=== PATIENT | female | born 1985 | race Caucasian/White ===

== ENCOUNTER 2019-03-03 00:22 | Emergency (ER) | payer BC ==
[2019-03-03 01:15] LABS: Urine Appearance Cloudy; Urine Bacteria 1+ (Absent); Urine Bilirubin Negative (Negative); Urine Blood Negative (Negative); Urine Color Yellow; Urine Glucose Negative (Negative); Urine Ketones Trace (Negative); Urine Nitrite Negative (Negative); Urine Protein Negative (Negative); Urine Red Blood Cell Absent (Absent); Urine Specific Gravity 1.012 (1.010-1.030); Urine Squamous Epithelial Cell Present (Absent); Urine Urobilinogen Negative (Negative); Urine White Blood Cell Trace(0-5/hpf) (Absent)
--- NOTE | 2019-03-03 01:24 | ED ---
Abdominal Pain/Female - HPI Summary HPI Summary: This pt is a 33 Y/O F presenting to [facility] with her and a CC of abdominal pain that has started today. She stated that she was 27 weeks and this was her first . She stated that she was having sharp epigastric and periumbilical abdominal pain that was rated a 9/10 and descried as contractions. She stated that she has had nausea but no vomiting. She stated that she was already seen by GI but the doctor refused to do anything until after her delivery. She stated that she has no aggravating or alleviating symptoms. She has a PMHx of a histial hernia. - History of Current Complaint Chief Complaint: EDAbdPain Stated Complaint: 27 WEEKS PREGS PAIN PER PT Time Seen by Provider: 03/03/19 01:12 Hx Obtained From: Patient Hx Last Menstrual Period: 3 MONTHS AGO ?: Yes - 27 weeks Onset/Duration: Sudden Onset - 213403/02/19, Still Present, Worse Since Timing: Constant Severity Initially: Moderate Severity Currently: Severe Pain Intensity: 9 Pain Scale Used: 0-10 Numeric Location: Epigastric, Umbilical Radiates: No Character: Cramping, Other: - contraction Aggravating Factor(s): Nothing Alleviating Factor(s): Nothing Associated Signs and Symptoms: Positive: Negative - chills, headaches, Nausea. Negative: Fever, Chest Pain, Vaginal Bleeding, Vaginal Discharge, Vomiting Allergies/Adverse Reactions: Allergies Allergy/AdvReac Type Severity Reaction Status Date / Time amoxicillin Allergy Rash Verified 03/03/19 00:30 ciprofloxacin [From Cipro] Allergy Rash Verified 03/03/19 00:30 clavulanic acid Allergy Rash Verified 03/03/19 00:30 [From Augmentin] latex Allergy Hives Verified 03/03/19 00:30 Penicillins Allergy Rash Verified 03/03/19 00:30 phenazopyridine Allergy Rash Verified 03/03/19 00:30 [From Pyridium] Sulfa (Sulfonamide Allergy Rash Verified 03/03/19 00:30 Antibiotics) PMH/Surg Hx/FS Hx/Imm Hx Previously Healthy: Yes Endocrine/Hematology History: Denies: Hx Diabetes, Hx Thyroid Disease Cardiovascular History: Denies: Hx Hypertension, Hx Pacemaker/ICD Respiratory History: Denies: Hx Asthma, Hx Chronic Obstructive Pulmonary Disease (COPD) GI History: Denies: Hx Ulcer History: Reports: Hx Kidney Infection - hx kidney stones Sensory History: Denies: Hx Hearing Aid Psychiatric History: Reports: Hx Anxiety Denies: Hx Panic Disorder - Surgical History Surgery Procedure, Year, and Place: TUBES IN EARS 1986. TONSILLECTOMY 1990 Infectious Disease History: No Infectious Disease History: Denies: Hx Hepatitis, Hx Human Immunodeficiency Virus (HIV), Traveled Outside the [place] in Last 30 Days - Family History Known Family History: Positive: Renal Disease - polycystic kidney disease - Social History Alcohol Use: None Hx Substance Use: No Substance Use Type: Reports: None Hx Tobacco Use: No Smoking Status (MU): Never Smoked Tobacco Review of Systems Negative: Fever, Chills Negative: Chest Pain Positive: Abdominal Pain - umbilical, epigastric. Negative: Vomiting, Nausea Negative: Headache All Other Systems Reviewed And Are Negative: Yes Physical Exam - Summary Physical Exam Summary: VITAL SIGNS: Reviewed. GENERAL: Patient is a well-developed and 28 week female who is lying comfortable in the stretcher. Patient is not in any acute respiratory distress. HEAD AND FACE: No signs of trauma. No ecchymosis, hematomas or skull depressions. No sinus tenderness. EYES: PERRLA, EOMI x 2, No injected conjunctiva, no nystagmus. EARS: Hearing grossly intact. Ear canals and tympanic membranes are within normal limits. MOUTH: Oropharynx within normal limits. NECK: Supple, trachea is midline, no adenopathy, no JVD, no carotid bruit, no c- spine tenderness, neck with full ROM CHEST: Symmetric, no tenderness at palpation LUNGS: Clear to auscultation bilaterally. No wheezing or crackles. CVS: Regular rate and rhythm, S1 and S2 present, no murmurs or gallops appreciated. ABDOMEN: Soft, epigastric and RUQ tenderness. No signs of distention. No rebound no guarding, and no masses palpated. Bowel sounds are normal. EXTREMITIES: FROM in all major joints, no edema, no cyanosis or clubbing. NEURO: Alert and oriented x 3. No acute neurological deficits. Speech is normal and follows commands. SKIN: Dry and warm Triage Information Reviewed: Yes Vital Signs On Initial Exam: Initial Vitals Temp Pulse Resp BP Pulse Ox 97.3 F 93 18 146/87 100 03/03/19 00:24 03/03/19 00:24 03/03/19 00:03/03/19 00:24 03/03/19 00:24 Vital Signs Reviewed: Yes Diagnostics - Vital Signs Vital Signs Temp Pulse Resp BP Pulse Ox 03/03/19 00:24 97.3 F 93 18 146/87 100 - Laboratory Lab Results: Lab Results 03/03/19 Range/Units 00:55 Urine Color Yellow Urine Appearance Cloudy Urine pH 6.0 (5-9) Ur Specific [place] 1.012 (1.010-1.030) Urine Protein Negative (Negative) Urine Ketones Trace A (Negative) Urine Blood Negative (Negative) Urine Nitrate Negative (Negative) Urine Bilirubin Negative (Negative) Urine Urobilinogen Negative (Negative) Ur Leukocyte Esterase 1+ A (Negative) Urine WBC (Auto) Trace(0-5/hpf) (Absent) Urine RBC (Auto) Absent (Absent) Ur Squamous Epith Cells Present A (Absent) Urine Bacteria 1+ A (Absent) Urine Glucose Negative (Negative) Result Diagrams: 03/03/19 01:47 03/03/19 01:47 Lab Statement: Any lab studies that have been ordered have been reviewed, and results considered in the medical decision making process. Abdominal Pain Fem Course/Dx - Course Course Of Treatment: This pt is a 33 Y/O F presenting to [facility] with her and a CC of abdominal pain that has started today. She stated that she was 27 weeks and this was her first . She stated that she was having sharp epigastric and periumbilical abdominal pain that was rated a 9/10 and descried as contractions. Her PE found that she has epigastric and RUQ tenderness. She had abnormal lab values in WBC, RBC, Hct. Her Abnormal urine results are: ketones, leukocyte esterase, squamous epith cells, bacteria. Since US is not avaliable at 0246 the pt will be discharged with a Dx of cholecystits and GERD. She will be instructed to follow up for an ultra sound tomorrow and receive one from gastroenterology. - Diagnoses Provider Diagnoses: Cholecystitis, GERD (gastroesophageal reflux disease) Discharge - Sign-Out/Discharge Documenting (check all that apply): Patient Departure - discharge Patient Received Moderate/Deep Sedation with Procedure: No - Discharge Plan Condition: Stable Disposition: HOME Patient Education Materials: Cholecystitis (ED), Gastroesophageal Reflux Disease (ED) Referrals: Jae Bain MD [Primary Care Provider] - 3 Days Rufina Nieto MD [Medical Doctor] - As Soon As Possible Additional Instructions: Please follow up with Dr. Nieto, Gastroeneterology, for an ultra sound tomorrow. Follow up with your primary care physician in 2-3 days and return to the emergency department for any new or worsening symptoms. - Attestation Statements Document Initiated by Scribe: Yes Documenting Scribe: Osmany Gordon Provider For Whom Scribe is Documenting (Include Credential): Connor Ridley MD Scribe Attestation: IOsmany, scribed for Connor Ridley MD on 03/03/19 at 0238. Status of Scribe Document: Ready
[2019-03-03] MEDS ORDERED: Famotidine IV* 10 MG/ML 2 ML (20 mg) IV SLOW PU ONE (01:27)
[2019-03-03] MEDS ORDERED: Morphine 4 MG/ML VIAL (1 ml) 4 MG/ML VIAL IV ONE (01:27)
[2019-03-03] MEDS ORDERED: Metoclopramide IV* 5 MG/ML 2 ML VIAL IV SLOW PU ONE (01:27)
[2019-03-03 01:53] LABS: ABS Basophils 0.1 10^3/ul (0-0.2); ABS Eosinophils 0.3 10^3/ul (0-0.6); ABS Lymphocytes 2.4 10^3/ul (1.0-4.8); ABS Monocytes 1.1 10^3/ul (0-0.8); ABS Neutrophils 10.6 10^3/ul (1.5-7.7); Eosinophil % 2.2 %; Hematocrit 33 % (35-47); Hemoglobin 11.4 g/dL (12.0-16.0); Lymphocyte % 16.8 %; Mean Corpuscular HGB Conc 34 g/dL (31-36); Mean Corpuscular Hemoglobin 30 pg (27-31); Mean Corpuscular Volume 88 fL (80-97); Mean Platelet Volume 8.9 fL (7.4-10.4); Platelet Count 344 10^3/uL (150-450); Red Blood Count 3.77 10^6 /uL (3.70-4.87); Red Cell Distribution Width 13 % (10-15); White Blood Count 14.5 10^3/uL (3.5-10.8)
[2019-03-03 02:15] LABS: Albumin 3.6 g/dL (3.2-5.2); Albumin/Globulin Ratio 1.3 (1-3); BUN/Creatinine Ratio 16.1 (8-20); EGFR African American 150.9 (>60); EGFR Non-African American 124.7 (>60); Globulin 2.8 g/dL (2-4); Potassium 3.5 mmol/L (3.5-5.0); Total Bilirubin 0.4 mg/dL (0.2-1.0); Total Protein 6.4 g/dL (6.4-8.9)
[2019-03-03 02:45] VITALS: BP 112/51
== END 2019-03-03 03:02 | disposition home or self-care (01) ==
LOC: ED 00:22
DX: O99.613 Diseases of the digestive system complicating pregnancy, third trimester (principal); K21.9 Gastro-esophageal reflux disease without esophagitis; R11.0 Nausea; R10.33 Periumbilical pain; Z3A.27 27 weeks gestation of pregnancy; Z87.442 Personal history of urinary calculi; Z88.0 Allergy status to penicillin; Z88.2 Allergy status to sulfonamides; Z88.8 Allergy status to other drugs, medicaments and biological substances; Z88.1 Allergy status to other antibiotic agents; Z91.040 Latex allergy status
CPT/HCPCS: 36415; 80053; 81003; 81015; 82150; 83690; 85025; 87086; 96374; 96375; 99283; J2270; J2765

== ENCOUNTER 2019-05-12 02:07 | Emergency (ER) | payer BC ==
--- OUTSIDE RECORDS SUMMARY | 2019-05-12 02:16 | XMS REPORT | Continuity of Care Document ---
:1985 External Reference #:[id number] Author Name Humble Queen MD, FACS (transmitted by agent of provider Marlyn Man) Address [address] [place] [address] [place] [address] Care Team Providers Name Role Phone Jae Bain MD - Internal Care Team Information [employer] Medicine Problems Description No Information Available Social History Type Date Description Comments Sex Unknown ETOH Use Denies alcohol use Tobacco Use Start: Unknown End: Patient is a former smoker Unknown Recreational Drug Use Denies Drug Use Smoking Status Reviewed: 03/20/19 Patient is a former smoker Exercise Type/Frequency Exercises regularly Allergies, Adverse Reactions, Alerts Active Allergies Reaction Severity Comments Date Latex 03/12/2019 Penicillin 03/12/2019 Augmentin 03/12/2019 Sulfa Antibiotics 03/12/2019 Peanut-containing Drug Products 03/12/2019 Medications Active Medications SIG Qnty Indications Ordering Provider Date One Daily take one Unknown capsule/tablet Tablets daily by mouth Tums 1 tab by mouth Unknown 500mg Chewtabs four times a day as needed History Medications No Active Medications Unknown 03/12/2019 - 03/20/2019 Immunizations Description No Information Available Vital Signs Date Vital Result Comment 03/20/2019 2:26pm Height 60 inches 5'0" Weight 158.00 lb Heart Rate 80 /min BP Systolic 128 mmHg BP Diastolic 76 mmHg Respiratory Rate 16 /min Body Temperature 98.7 F BMI (Body Mass Index) 30.9 kg/m2 Results Description No Information Available Procedures Description No Information Available Medical Devices Description No Information Available Encounters Description No Information Available Assessments Date Code Description Provider 03/20/2019 K80.20 Calculus of gallbladder without Humble Queen MD, FACS cholecystitis without obstruction Plan of Treatment Future Appointment(s):08/03/2019 9:00 am - Humble Queen MD, FACS at [facility]03/20/2019 - Humble Queen MD, FACSK80.20 Calculus of gallbladder without cholecystitis without obstructionFollow up:2-3 months post- . Functional Status Description No Information Available Mental Status Description No Information Available Referrals Description No Information Available
--- OUTSIDE RECORDS SUMMARY | 2019-05-12 02:16 | XMS REPORT | Continuity of Care Document ---
:1985 External Reference #:[id number] Author Name Jae Bain MD Address [address] [place] [id number] Care Team Providers Name Role Phone Shanti Wharton MD - Obstetrics & Care Team Information [employer] [place] [facility]ne[facility] Problems Active Problems Provider Date Allergic rhinitis Jae Bain MD Onset: 11/16/2016 Moderate recurrent major depression Jae Bain MD Onset: 06/04/2016 Tobacco user Jae Bain MD Onset: 06/04/2016 H/O: urinary stone Jae Bain MD Onset: 06/07/2015 Generalized anxiety disorder Jae Bain MD Onset: 02/10/2014 Non-neoplastic nevus Jae Bain MD Onset: 02/10/2014 Social History Type Date Description Comments Sex Unknown ETOH Use Rarely consumes alcohol Tobacco Use Start: Unknown Light tobacco smoker Quit smoking with (10 or fewer as of cigarettes/day) Early 2018. Recreational Drug Use Never Used Drugs Tobacco Use Start: Unknown End: Patient is a former Unknown smoker Smoking Status Reviewed: 01/21/19 Patient is a former smoker Exercise Type/Frequency Does not exercise Allergies, Adverse Reactions, Alerts Active Allergies Reaction Severity Comments Date Latex Contact dermatitis, Moderate 02/10/2014 Urticaria Penicillin Urticaria Moderate 02/10/2014 Augmentin Urticaria Moderate 02/10/2014 Sulfa Urticaria Moderate 02/10/2014 Peanut-containing Drug Moderate 02/10/2014 Products Medications Description No Active Medications Immunizations CPT Code Status Date Vaccine Lot # [id number] Given 05/05/2014 Influenza Virus Split 3 Yrs And Above For Intramuscular Use 52730 Given 05/05/2013 Influenza Virus Split 3 Yrs And Above For Intramuscular Use [id number] Given 03/05/2006 Tdap-Tetanus, Diphtheria Toxoids/Acellular Pertussis Vaccine 7+ [id number] Refused 07/15/2018 Tdap-Tetanus, Diphtheria Toxoids/Acellular Pertussis Vaccine 7+ [id number] Refused 07/15/2018 Influenza Vaccine Quadrivalent Preser/Antibiotic Free [place] Use [id number] Refused 05/31/2015 Influenza Virus Split 3 Yrs And Above For Intramuscular Use Vital Signs Date Vital Result Comment 04/21/2019 12:49pm Body Temperature 98.2 F Heart Rate 80 /min BP Systolic 115 mmHg BP Diastolic 80 mmHg 03/11/2019 12:07pm Heart Rate 72 /min BP Systolic 110 mmHg BP Diastolic 70 mmHg Weight 162.00 lb Results Test Date Facility Test Result H/L Range Note CBC Auto Diff 03/03/2019 [facility] White Blood 14.5 10^3/uL High 3.5-10.8 [place] [address] Count [phone] Red Blood Count 3.77 10^6/uL Normal 3.70-4.87 Hemoglobin 11.4 g/dL Low 12.0-16.0 Hematocrit 33 % Low 35-47 Mean Corpuscular Volume 88 fL Normal 80-97 Mean Corpuscular Hemoglobin 30 pg Normal 27-31 Mean Corpuscular HGB Conc 34 g/dL Normal 31-36 Red Cell Distribution Width 13 % Normal 10-15 Platelet Count 344 10^3/uL Normal 150-450 Mean Platelet Volume 8.9 fL Normal 7.4-10.4 Abs Neutrophils 10.6 10^3/uL High 1.5-7.7 Abs Lymphocytes 2.4 10^3/uL Normal 1.0-4.8 Abs Monocytes 1.1 10^3/uL High 0-0.8 Abs Eosinophils 0.3 10^3/uL Normal 0-0.6 Abs Basophils 0.1 10^3/uL Normal 0-0.2 Abs Nucleated RBC 0.0 10^3/uL Granulocyte % 73.2 % Lymphocyte % 16.8 % Monocyte % 7.3 % Eosinophil % 2.2 % Basophil % 0.5 % Nucleated Red Blood Cells % 0.0 Comp Metabolic 03/03/2019 [facility] Sodium 136 mmol/L Normal 135-145 [place] [address] [phone] Potassium 3.5 mmol/L Normal 3.5-5.0 Chloride 103 mmol/L Normal 101-111 Co2 Carbon Dioxide 24 mmol/L Normal 22-32 Anion Gap 9 mmol/L Normal 2-11 Glucose 115 mg/dL High 70-100 Blood Urea Nitrogen 9 mg/dL Normal 6-24 Creatinine 0.56 mg/dL Normal 0.51-0.95 BUN/Creatinine Ratio 16.1 Normal 8-20 Calcium 10.0 mg/dL Normal 8.6-10.3 Total Protein 6.4 g/dL Normal 6.4-8.9 Albumin 3.6 g/dL Normal 3.2-5.2 Globulin 2.8 g/dL Normal 2-4 Albumin/Globulin Ratio 1.3 Normal 1-3 Total Bilirubin 0.40 mg/dL Normal 0.2-1.0 Alkaline Phosphatase 110 U/L High 34-104 Alt 42 U/L Normal 7-52 Ast 32 U/L Normal 13-39 Egfr Non- 124.7 >60 Egfr 150.9 >60 1 Laboratory test 03/03/2019 [facility] Amylase 41 U/L Normal 29 -103 [place] [address] [phone] Lipase 15 U/L Normal 11.0-82.0 Urinalysis Profile 03/03/2019 [facility] [place] [address] [phone] Urine Appearance Cloudy Urine Specific [place] 1.012 Normal 1.010-1.030 Urine pH 6.0 Normal 5-9 Urine Urobilinogen Negative Negative Urine Ketones Trace Abnormal Negative Urine Protein Negative Negative Urine Leukocytes 1+ Abnormal Negative Urine Blood Negative Negative Urine Nitrite Negative Negative Urine Bilirubin Negative Negative Urine Glucose Negative Negative Urine White Blood Cell Trace(0-5/hpf) Absent Urine Red Blood Cell Absent Absent Urine Bacteria 1+ Abnormal Absent Urine Squamous Epithelial Cell Present Abnormal Absent Urine Culture And 03/03/2019 [facility] Urine Culture SEE RESULT 2 [place] [address] BELOW [phone] 1 Because ethnic data is not always readily available, this report includes an eGFR for both -Americans and non- Americans. The National Kidney Disease Education Program (NKDEP) does not endorse the use of the MDRD equation for patients that are not between the ages of 18 and 70, are , have extremes of body size, muscle mass, or nutritional status, or are non- or non-. According to the National Kidney Foundation, irrespective of diagnosis, the stage of the disease is based on the level of kidney function: Stage Description GFR(mL/min/1.73 m(2)) 1 Kidney damage with normal or decreased GFR 90 2 Kidney damage with mild decrease in GFR 60-89 3 Moderate decrease in GFR 30-59 4 Severe decrease in GFR 15-29 5 Kidney failure <15 (or dialysis) 2 SEE RESULT BELOW Name: KANIKA REIS : [address]: Connor Ridley MD Acct: [id number] Unit: [id number] AGE: 33 Location: ED Re03/03/19 SEX: F Status: RICHAR CHICAS SPEC: [id number] EMORY: 03/03/190055 ASHWIN DR: Rico DIEZ REQ: [id number] RECD: 03/03/19 STATUS: CAL NEWBERRY DR: [facility] Jae Bain MD _ SOURCE: URINE SPDESC: ORDERED: Urine Culture Procedure Result Reported Site Urine Culture Final 03/04/19- 36 ML No growth of clinically significant organisms * ML - Main Lab . END OF REPORT DEPARTMENT OF PATHOLOGY, [address] [place] [address] Jonas Auguste M.D. Director [facility] # [id number] Procedures Description No Information Available Medical Devices Description No Information Available Encounters Type Date Location Provider Dx Diagnosis Office Visit 04/21/2019 Main Office Jae Bain, B34.9 Viral infection, 12:20p unspecified R05 Cough Office Visit 03/11/2019 12:00p Main Office Jae Keyes K80.20 Calculus of MD Taya gallbladder w/o cholecystitis w/o obstruction K21.9 Gastro-esophageal reflux disease without esophagitis Office Visit 01/21/2019 11:20a Main Office Jae Keyes K21.9 Gastro- esophageal MD Taya reflux disease without esophagitis F33.1 Major depressive disorder, recurrent, moderate F41.1 Generalized anxiety disorder F17.210 Nicotine dependence, cigarettes, uncomplicated Office Visit 12/31/2018 3:20p Main Office Jae Keyes R10.10 Upper abdominal MD Taya pain, unspecified Office Visit 11/13/2018 10:20a Main Office Jae Keyes I10 Essential ( primary) MD Taya hypertension F33.1 Major depressive disorder, recurrent, moderate F41.1 Generalized anxiety disorder Assessments Date Code Description Provider 04/21/2019 B34.9 Viral infection, unspecified Jae Bain MD 04/21/2019 R05 Cough Jae Bain MD 03/11/2019 K80.20 Calculus of gallbladder without Jae Bain MD cholecystitis without obstruction 03/11/2019 K21.9 Gastro-esophageal reflux disease without Jae Bain MD esophagitis 01/21/2019 K21.9 Gastro-esophageal reflux disease without Jae Bain MD esophagitis 01/21/2019 F33.1 Major depressive disorder, recurrent, aJe Bain MD moderate 01/21/2019 F41.1 Generalized anxiety disorder Jae Bain MD 01/21/2019 F17.210 Nicotine dependence, cigarettes, Jae Bain MD uncomplicated 12/31/2018 R10.10 Upper abdominal pain, unspecified Jae Bain MD 11/13/2018 I10 Essential (primary) hypertension Jae Bain MD 11/13/2018 F33.1 Major depressive disorder, recurrent, Jae Bain MD moderate 11/13/2018 F41.1 Generalized anxiety disorder Jae Bain MD Plan of Treatment Future Appointment(s):07/16/2019 10:00 am - Jae Bain MD at Main [facility]404/21/2019 - Jae Bain MDB34.9 Viral infection, unspecifiedComments:Resolving.Benign examination.R05 CoughComments:Possible residual viral infection and post nasal drip related and due to GERD.Lifestyle and dietary modifications advised. Functional Status Description No Information Available Mental Status Description No Information Available Referrals Refer to Dr Reason for Referral Status Appt Date Humble Queen MD Closed 03/20/[address] [place] [address] [place] [address] [phone]
[2019-05-12 03:20] LABS: ABS Eosinophils 0.1 10^3/ul (0-0.6); ABS Lymphocytes 2.7 10^3/ul (1.0-4.8); ABS Monocytes 0.9 10^3/ul (0-0.8); ABS Neutrophils 6.5 10^3/ul (1.5-7.7); Eosinophil % 1.2 %; Hematocrit 33 % (35-47); Hemoglobin 11.2 g/dL (12.0-16.0); Lymphocyte % 26.5 %; Mean Corpuscular HGB Conc 34 g/dL (31-36); Mean Corpuscular Hemoglobin 29 pg (27-31); Mean Corpuscular Volume 85 fL (80-97); Mean Platelet Volume 10.1 fL (7.4-10.4); Platelet Count 239 10^3/uL (150-450); Red Blood Count 3.89 10^6 /uL (3.70-4.87); Red Cell Distribution Width 14 % (10-15); White Blood Count 10.3 10^3/uL (3.5-10.8)
[2019-05-12 03:38] LABS: Albumin 3.2 g/dL (3.2-5.2); Albumin/Globulin Ratio 1.2 (1-3); BUN/Creatinine Ratio 17.5 (8-20); Calcium 8.9 mg/dL (8.6-10.3); EGFR African American 131.7 (>60); EGFR Non-African American 108.8 (>60); Globulin 2.6 g/dL (2-4); Potassium 3.6 mmol/L (3.5-5.0); Total Bilirubin 0.3 mg/dL (0.2-1.0); Total Protein 5.8 g/dL (6.4-8.9)
--- NOTE | 2019-05-12 03:38 | ED ---
Abdominal Pain/Female - HPI Summary HPI Summary: Pt is a 33 y/o F presenting to the ED with a chief complaint of abd pain initially onset about 0030 tonight. She is 37.5wks , due on the 30 of May, and states that she has had trouble with a hiatal hernia and gallstones while she has been . She reports nausea and diarrhea. She denies fever, vomiting, dysuria, hematuria, vaginal bleeding or discharge. Dr. Bonilla is her CAREER DEVELOPMENT SPECIALIST. - History of Current Complaint Chief Complaint: EDAbdPain Stated Complaint: 9 MONTHS PREG/ABD PAIN PER PT Time Seen by Provider: 05/12/19 02:37 Hx Obtained From: Patient ?: Yes - 37.5wks Onset/Duration: Sudden Onset, Lasting Hours, Still Present Timing: Hours Severity Initially: Moderate Severity Currently: Severe Pain Intensity: 9 Pain Scale Used: 0-10 Numeric Location: Suprapubic Radiates: No Aggravating Factor(s): Nothing Alleviating Factor(s): Nothing Associated Signs and Symptoms: Positive: Nausea, Diarrhea. Negative: Fever, Urinary Symptoms, Vaginal Bleeding, Vaginal Discharge, Vomiting Allergies/Adverse Reactions: Allergies Allergy/AdvReac Type Severity Reaction Status Date / Time amoxicillin Allergy Rash Verified 05/12/19 02:31 ciprofloxacin [From Cipro] Allergy Rash Verified 05/12/19 02:31 clavulanic acid Allergy Rash Verified 05/12/19 02:31 [From Augmentin] latex Allergy Hives Verified 05/12/19 02:31 Penicillins Allergy Rash Verified 05/12/19 02:31 phenazopyridine Allergy Rash Verified 05/12/19 02:31 [From Pyridium] Sulfa (Sulfonamide Allergy Rash Verified 05/12/19 02:31 Antibiotics) PMH/Surg Hx/FS Hx/Imm Hx Previously Healthy: Yes Endocrine/Hematology History: Denies: Hx Diabetes, Hx Thyroid Disease Cardiovascular History: Denies: Hx Hypertension, Hx Pacemaker/ICD Respiratory History: Denies: Hx Asthma, Hx Chronic Obstructive Pulmonary Disease (COPD) GI History: Reports: Hx Gall Bladder Disease - gallstones, Hx Hiatal Hernia Denies: Hx Ulcer History: Reports: Hx Kidney Infection - hx kidney stones Sensory History: Denies: Hx Hearing Aid Psychiatric History: Reports: Hx Anxiety Denies: Hx Panic Disorder - Surgical History Surgery Procedure, Year, and Place: TUBES IN EARS 1986. TONSILLECTOMY 1990 Infectious Disease History: No Infectious Disease History: Denies: Hx Hepatitis, Hx Human Immunodeficiency Virus (HIV), Traveled Outside the [place] in Last 30 Days - Family History Known Family History: Positive: Renal Disease - polycystic kidney disease - Social History Alcohol Use: None Hx Substance Use: No Substance Use Type: Reports: None Hx Tobacco Use: No Smoking Status (MU): Former Smoker Review of Systems Negative: Fever Positive: Abdominal Pain, Diarrhea, Nausea. Negative: Vomiting Negative: dysuria, discharge - vaginal, hematuria, other - vaginal bleeding All Other Systems Reviewed And Are Negative: Yes Physical Exam - Summary Physical Exam Summary: Constitutional: Well-developed, Well-nourished, Alert. (-) Distressed Skin: Warm, Dry HENT: Normocephalic; Atraumatic Eyes: Conjunctiva normal Neck: Musculoskeletal ROM normal neck. (-) JVD, (-) Stridor, (-) Tracheal deviation Cardio: Rhythm regular, rate normal, Heart sounds normal; Intact distal pulses; Radial pulses are 2+ and symmetric. (-) Murmur Pulmonary/Chest wall: Effort normal. (-) Respiratory distress, (-) Wheezes, (-) Rales Abd: Gravid uterus. Mild epigastric tenderness. (-) Distension, (-) Guarding, (- ) Rebound Musculoskeletal: (-) Edema Lymph: (-) Cervical adenopathy Neuro: Alert, Oriented x3 Psych: Mood and affect Normal Triage Information Reviewed: Yes Vital Signs On Initial Exam: Initial Vitals Temp Pulse Resp BP Pulse Ox 97.8 F 72 18 117/73 98 05/12/19 02:10 05/12/19 02:10 05/12/19 02:10 05/12/19 02:10 05/12/19 02:10 Vital Signs Reviewed: Yes Procedures - Sedation Patient Received Moderate/Deep Sedation with Procedure: No Diagnostics - Vital Signs Vital Signs Temp Pulse Resp BP Pulse Ox 05/12/19 02:10 97.8 F 72 18 117/73 98 - Laboratory Lab Results: Lab Results 05/12/19 Range/Units 03:12 WBC 10.3 (3.5-10.8) 10^3/uL RBC 3.89 (3.70-4.87) 10^6 /uL Hgb 11.2 L (12.0-16.0) g/dL Hct 33 L (35-47) % MCV 85 (80-97) fL MCH 29 (27-31) pg MCHC 34 (31-36) g/dL RDW 14 (10-15) % Plt Count 239 (150-450) 10^3/uL MPV 10.1 (7.4-10.4) fL Neut % (Auto) 63.3 % Lymph % (Auto) 26.5 % [place] % (Auto) 8.5 % Eos % (Auto) 1.2 % Baso % (Auto) 0.5 % Absolute Neuts (auto) 6.5 (1.5-7.7) 10^3/ul Absolute Lymphs (auto) 2.7 (1.0-4.8) 10^3/ul Absolute Monos (auto) 0.9 H (0-0.8) 10^3/ul Absolute Eos (auto) 0.1 (0-0.6) 10^3/ul Absolute Basos (auto) 0.0 (0-0.2) 10^3/ul Absolute Nucleated RBC 0.0 10^3/ul Nucleated RBC % 0.0 Result Diagrams: 05/12/19 03:12 05/12/19 03:12 Lab Statement: Any lab studies that have been ordered have been reviewed, and results considered in the medical decision making process. Re-Evaluation - Re-Evaluation 1st re-eval Re-Evaluation Time: 03:54 Change: Improved Comment: Pt states she is feeling better and would like to go home. Abdominal Pain Fem Course/Dx - Course Course Of Treatment: Patient is here with epigastric abdominal pain. Patient has had similar episodes like this throughout her and that. She has gallstones and a hiatal hernia. Patient's pain was passing improved by the time I evaluated her. Patient was offered pain medication but she declined. Patient had a CBC, CMP, lipase performed which showed slight elevation compared to her prior testing her LFTs and alkaline phosphatase. Patient clinically did not have cholecystitis as she was asymptomatic by the time she was discharged - Diagnoses Provider Diagnoses: Gallstones Discharge ED - Sign-Out/Discharge Documenting (check all that apply): Patient Departure - Discharge Plan Condition: Stable Disposition: HOME Patient Education Materials: Gallstones (ED) Referrals: Jae Bain MD [Primary Care Provider] - José Luis Bonilla MD [Medical Doctor] - Additional Instructions: Follow up with Dr. Bonilla within the next 1-3 days. Return to the emergency department with any new or worsening symptoms, including worsening abdominal pain or fever. - Billing Disposition and Condition Condition: STABLE Disposition: Home - Attestation Statements Document Initiated by Scribe: Yes Documenting Scribe: Aleisha Cerna Provider For Whom Jasmina is Documenting (Include Credential): Jerald Noriega MD. Scribe Attestation: Aleisha Starr, scribed for Jerald Noriega MD. on 05/12/19 at 0500. Scribe Documentation Reviewed: Yes Provider Attestation: The documentation as recorded by the christineibAleisha villegas accurately reflects the service I personally performed and the decisions made by Jerald vizcarra MD. Status of Scribe Document: Viewed
[2019-05-12 04:11] VITALS: BP 132/66
== END 2019-05-12 04:11 | disposition home or self-care (01) ==
LOC: ED 02:07
DX: O26.893 Other specified pregnancy related conditions, third trimester (principal); K80.80 Other cholelithiasis without obstruction; Z3A.37 37 weeks gestation of pregnancy; Z87.891 Personal history of nicotine dependence; Z88.0 Allergy status to penicillin; Z88.2 Allergy status to sulfonamides; Z88.8 Allergy status to other drugs, medicaments and biological substances; Z88.1 Allergy status to other antibiotic agents; Z91.040 Latex allergy status
CPT/HCPCS: 36415; 80053; 83690; 85025; 99282

== ENCOUNTER 2019-05-28 12:03 | Inpatient (IN) | payer BC ==
[2019-05-28] MEDS ORDERED: Lactated Ringers 1000 ML Bag* 1,000 ML IV ONE ×2 (13:42→21:19)
[2019-05-28] MEDS ORDERED: Buffered Lidocaine 1% SYRIN* 1 ML/SYRINGE INTRADERM ONE (13:42)
--- NOTE | 2019-05-28 13:52 | HP ---
General Information - Reason for Visit Induction of labor for a full term effected by gallstones and hiatal hernia. - General Information Maternal Age: 33 Grav: 1 Para: 0 SAB: 0 IEA: 0 Estimated Due Date: 05/31/19 Determined By: LMP Gestational Age in Weeks/Days: 39w4d Maternal Blood Type and Rh: O Negative - Results this Serology/RPR Result: Non-Reactive Rubella Result: Immune HBsAg Result: Negative HIV Result: Negative GBS Culture Result: Negative Past Medical History Pertinent Past Medical History: See Records - anxiety, PTSD, hiatal hernia, gallstones, history of hypertension Pertinent Past Surgical History: See Records - 1994 tonsillectomy, 1985:tubes in ears Pertinent Family History: See Records - sister: PCOS, anxiety; PGM: CVD, HTN, DM; M: HTN, stroke, DM, kidney stones; F: HTN, DM, thyroid, prostate CA, high chol, CVD; MGM: CVD, thyroid, blood clots; MGF: DM, CVD, liver CA - Antepartal Records Antepartal Records: Reviewed, Complicated by: - gallstones, hiatal hernia, PTSD, history of hypertension Review of Systems Constitutional: Comfortable CV Complaint: No Respiratory: Shortness of Breath: No Gastrointestinal: No Nausea/Vomiting, Normal Bowel Movement Genitourinary: No Dysuria, No Bleeding, No Leaking Fluid Musculoskeletal: No Complaint, No Epigastric Pain Neurological: No Headache, No Visual Changes Movement: Normal Exam Allergies/Adverse Reactions: Allergies amoxicillin Allergy (Verified 05/12/19 02:31) Rash ciprofloxacin [From Cipro] Allergy (Verified 05/12/19 02:31) Rash clavulanic acid [From Augmentin] Allergy (Verified 05/12/19 02:31) Rash latex Allergy (Verified 05/12/19 02:31) Hives Penicillins Allergy (Verified 05/12/19 02:31) Rash phenazopyridine [From Pyridium] Allergy (Verified 05/12/19 02:31) Rash Sulfa (Sulfonamide Antibiotics) Allergy (Verified 05/12/19 02:31) Rash Vital Signs 05/28/19 12:10 Temperature 98.4 F Pulse Rate 93 Respiratory 22 Rate Blood Pressure 130/82 (mmHg) O2 Sat by Pulse 100 Oximetry Lab Values - Entire Visit: pending - Measurements Height: 5 ft Weight: 160 lb Weight in lbs: [id number] Body Mass Index (BMI): 31.2 Pre- Weight: 160 lb Weight Gained This : 0 lbs and 0 ozs - Exam Breast: Breast Exam Deferred CVA: No CVA Tenderness Extremities: No Edema Heart: Normal Rhythm/Heart Sounds HEENT: No Significant Findings Lungs: Clear Bilaterally Rectal: Rectal Exam Deferred Reflexes: DTR 2+ Thyroid: No Thyromegaly - Abdominal Exam Abdomen Exam: Fundal Height Consistent with Dates - Ultrasound/Biophysical Profile Ultrasound Status: Not Done Targeted Exam Findings Estimated Weight: 7lbs 3oz Cervical Exam: 3cm, 4cm Effacement: 60%, 70% Station: Ballotable Presenting Part: Vertex Membrane Status: Intact Bleeding/Discharge: None EFM Findings - External Monitor Findings Baseline Heart Rate: 130 External Monitor Findings: Accelerations Present, No Pattern of Variable or Late Decelerations, Variability Moderate, Baseline Stable Contractions: Irregular, Mild, < 45 Seconds Assessment/Plan - Assessment 33 y.o. , [id number], induction of labor for effected by hiatal hernia and gallstones - Obstetrical Risk Factors Obstetrical Risk Factors: Psychiatric Issues - Plan Plan: Induction - Date/Time of Admission Date of Admission: 05/28/19 Time of Admission: 13:30
[2019-05-28] MEDS ORDERED: Lactated Ringers 1000 ML Bag* 1,000 ML IV SCH ×2 (14:00→22:00)
[2019-05-28] MEDS ORDERED: Oxytocin in LR* 20 UNITS/1,000 ML BAG IVPB SCH (14:00)
[2019-05-28 14:49] LABS: ABS Basophils 0.1 10^3/ul (0-0.2); ABS Eosinophils 0.1 10^3/ul (0-0.6); ABS Lymphocytes 3.1 10^3/ul (1.0-4.8); ABS Neutrophils 8.2 10^3/ul (1.5-7.7); Eosinophil % 0.8 %; Hematocrit 39 % (35-47); Hemoglobin 12.8 g/dL (12.0-16.0); Lymphocyte % 24.7 %; Mean Corpuscular HGB Conc 33 g/dL (31-36); Mean Corpuscular Hemoglobin 28 pg (27-31); Mean Corpuscular Volume 86 fL (80-97); Mean Platelet Volume 10.8 fL (7.4-10.4); Platelet Count 270 10^3/uL (150-450); Red Blood Count 4.52 10^6 /uL (3.70-4.87); Red Cell Distribution Width 15 % (10-15); White Blood Count 12.5 10^3/uL (3.5-10.8)
[2019-05-28 15:12] LABS: Urine Benzodiazepine Screen None Detected (None Detect); Urine Opiates Screen None Detected (None Detect)
--- NOTE | 2019-05-28 20:44 | PN ---
Progress Note - Progress Note Date of Service: 05/28/19 SOAP: Subjective: Pt reports contractions are stronger and closer together but she is still coping well, plan is epidural soon. Objective: FHR:125bpm, + accels, - decels, moderate variability, ctx q 2-3cm, pt at 12. cervix:4-5/70/-1 Assessment: 33 y.o. 39w4d EGA, cat I NST, IOL Plan: 1) AROM- clear 2) Anesthesia consult 3) Reevaluate in 2 hrs
[2019-05-28] MEDS ORDERED: Bupivacaine 0.25% SDV PF* 10 ML VIAL INJ ONE (20:50)
[2019-05-28] MEDS ORDERED: OBEPIDURAL* 250 ML EPIDURAL ONE (20:52)
[2019-05-28] MEDS ORDERED: Phenylephrine 40 MCG/ML SYRINGE IV PUSH PRN (21:19)
[2019-05-28] MEDS ORDERED: Sodium Citrate/Citric Acid* 15 ML UDC PO PRN (21:19)
[2019-05-28] MEDS ORDERED: Famotidine TAB* 20 MG PO PRN (21:19)
[2019-05-28] MEDS ORDERED: EPHEDrine (Pressors)* 50 MG/ML VIAL IV PUSH PRN (21:19)
[2019-05-28] MEDS ORDERED: OBEPIDURAL* 250 ML EPIDURAL SCH (22:00)
[2019-05-29] MEDS ORDERED: Glycerin ADULT SUPP PR PRN (03:16)
--- NOTE | 2019-05-29 03:16 | PROCNOTE ---
[facility] OB: Delivery Note - Delivery A Date of : 05/29/19 Time of : 02:54 Sex: Male Score 1 Minute: 9 Score 5 Minutes: 10 Gestational Age in Weeks and Days at Delivery: 39 Weeks and 5 Days Delivery Method: Spontaneous Vaginal Labor: Induced Amniotic Fluid: Clear Estimated Blood Loss: 200 Anesthesia/Analgesia: CEI for Labor Delivered By: Lydia Gibson - Nursery Level of Nursery: Regular/Bedside - Perineum Perineal Injury: Perineal Laceration, 1st Degree Perineal Repair: By Delivering Practioner - Events Delivery Events of Note: Pitocin During Labor
[2019-05-29] MEDS ORDERED: Oxytocin in LR* 20 UNITS/1,000 ML BAG IVPB SCH (04:00)
[2019-05-29] MEDS ORDERED: Lactated Ringers 1000 ML Bag* 1,000 ML IV SCH (04:00)
[2019-05-29] MEDS: Dibucaine 1% 28.35 GM TUBE PR PRN (04:07)
[2019-05-29] MEDS: Ibuprofen TAB* 600 MG PO PRN ×3 (04:07→20:28)
[2019-05-29] MEDS: Witch Hazel PAD* JAR TOPICAL PRN (04:07)
[2019-05-29] MEDS ORDERED: Ammonia Inhalant* 1 EA AMP ONE (05:33)
[2019-05-29] MEDS ORDERED: Lidocaine 1% INJ* 10 MG/ML 30 ML SDV ONE (06:07)
[2019-05-29] MEDS: Docusate CAP* 100 MG PO SCH ×3 (07:16→20:28)
[2019-05-29] MEDS: Acetaminophen TAB* 325 MG PO PRN ×3 (07:16→18:16)
[2019-05-29] MEDS ORDERED: Simethicone TAB* 80 MG TAB.CHEW PO SCH (08:30)
[2019-05-29] MEDS ORDERED: Influenza VAC *QUAD* 2019-20* 0.5 ML SYRINGE IM ONE (09:00)
[2019-05-30] MEDS: Ibuprofen TAB* 600 MG PO PRN ×4 (02:21→21:16)
[2019-05-30] MEDS: Witch Hazel PAD* JAR TOPICAL PRN ×2 (05:49→22:51)
[2019-05-30] MEDS: Dibucaine 1% 28.35 GM TUBE PR PRN ×2 (05:49→22:51)
[2019-05-30] MEDS: Docusate CAP* 100 MG PO SCH ×3 (08:45→20:41)
[2019-05-30 08:57] LABS: ABS Basophils 0.1 10^3/ul (0-0.2); ABS Eosinophils 0.1 10^3/ul (0-0.6); ABS Lymphocytes 2.6 10^3/ul (1.0-4.8); ABS Monocytes 0.9 10^3/ul (0-0.8); ABS Neutrophils 10.9 10^3/ul (1.5-7.7); Hematocrit 31 % (35-47); Hemoglobin 10.2 g/dL (12.0-16.0); Lymphocyte % 17.8 %; Mean Corpuscular HGB Conc 33 g/dL (31-36); Mean Corpuscular Hemoglobin 28 pg (27-31); Mean Corpuscular Volume 86 fL (80-97); Platelet Count 218 10^3/uL (150-450); Red Blood Count 3.63 10^6 /uL (3.70-4.87); Red Cell Distribution Width 16 % (10-15); White Blood Count 14.6 10^3/uL (3.5-10.8)
[2019-05-30] MEDS ORDERED: Ferrous Gluconate TAB* 324 MG TAB PO SCH (09:00)
[2019-05-30] MEDS ORDERED: RHO D Immune Globulin (HUMAN)* 300 MCG = 1,500 I.U. INJ IM ONE (11:28)
[2019-05-30] MEDS: Acetaminophen TAB* 325 MG PO PRN (20:41)
[2019-05-31] MEDS: Acetaminophen TAB* 325 MG PO PRN (00:41)
[2019-05-31] MEDS: Ibuprofen TAB* 600 MG PO PRN ×2 (03:37→10:01)
[2019-05-31 07:55] VITALS: BP 127/70
[2019-05-31] MEDS: Docusate CAP* 100 MG PO SCH (10:01)
[2019-05-31] MEDS: Dibucaine 1% 28.35 GM TUBE PR PRN (10:05)
[2019-05-31] MEDS: Witch Hazel PAD* JAR TOPICAL PRN (10:05)
== END 2019-05-31 11:50 | disposition home or self-care (01) | DRG 560 ==
LOC: MCHOBOUT 12:03 → MCHOB 13:43
PROVIDERS: ADMIT Midwife; ATTEND Midwife
PROC: 10E0XZZ Delivery of Products of Conception, External Approach (ICD-10-PCS; principal; 2019-05-29)
PROC: 3E033VJ Introduction of Other Hormone into Peripheral Vein, Percutaneous Approach (ICD-10-PCS; 2019-05-29)
PROC: 10907ZC Drainage of Amniotic Fluid, Therapeutic from Products of Conception, Via Natural or Artificial Opening (ICD-10-PCS; 2019-05-29)
PROC: 0HQ9XZZ Repair Perineum Skin, External Approach (ICD-10-PCS; 2019-05-29)
DX: O99.62 Diseases of the digestive system complicating childbirth (principal); Z37.0 Single live birth; K80.80 Other cholelithiasis without obstruction; O99.344 Other mental disorders complicating childbirth; F43.10 Post-traumatic stress disorder, unspecified; O70.0 First degree perineal laceration during delivery; O75.89 Other specified complications of labor and delivery; K44.9 Diaphragmatic hernia without obstruction or gangrene; Z3A.39 39 weeks gestation of pregnancy
CPT/HCPCS: 36415; 80307; 85025; 85461; 86850; 86870; 86880; 86900; 86901; 90686; A9270-GY; J2790; J3490

== ENCOUNTER 2019-06-09 12:17 | Inpatient (IN) | payer BC ==
[2019-06-09 12:48] LABS: ABS Basophils 0.1 10^3/ul (0-0.2); ABS Eosinophils 0.2 10^3/ul (0-0.6); ABS Monocytes 0.5 10^3/ul (0-0.8); Eosinophil % 1.8 %; Hematocrit 39 % (35-47); Hemoglobin 12.6 g/dL (12.0-16.0); Lymphocyte % 23.2 %; Mean Corpuscular HGB Conc 33 g/dL (31-36); Mean Corpuscular Hemoglobin 28 pg (27-31); Mean Corpuscular Volume 86 fL (80-97); Mean Platelet Volume 8.3 fL (7.4-10.4); Nucleated Red Blood Cells % 0.1; Platelet Count 481 10^3/uL (150-450); Red Cell Distribution Width 16 % (10-15); White Blood Count 8.8 10^3/uL (3.5-10.8)
[2019-06-09 13:02] LABS: INR 1.03 (0.82-1.09)
--- NOTE | 2019-06-09 13:02 | ED ---
Abdominal Pain/Female - HPI Summary HPI Summary: Pt is a 33 y/o F presenting to the ED with a chief complaint of RUQ abd pain initially onset multiple weeks ago, but worsened over the past 3 days. She is 11 days and had numerous gallbladder issues throughout her . She went to [place] yesterday where she received inconclusive information, but was told to not take Ibuprofen. Dr. Queen also stated he would not consider surgery until she was at least 6-8wks . The pain goes into her R shoulder, chest, and upper back, and is accompanied by nausea and constipation. She denies fever, chills, or vomiting. Medications reviewed. Allergies noted. - History of Current Complaint Chief Complaint: EDAbdPain Stated Complaint: CHEST AND ABD PAIN PER PT Time Seen by Provider: 06/09/19 12:28 Hx Obtained From: Patient ?: No Onset/Duration: Gradual Onset, Lasting Days, Still Present Timing: Constant Severity Initially: Moderate Severity Currently: Severe Pain Intensity: 9 Pain Scale Used: 0-10 Numeric Location: Discrete At: RUQ Radiates: Yes Radiates to: Back, Chest, Other - shoulder, arm Aggravating Factor(s): Nothing Alleviating Factor(s): Nothing Associated Signs and Symptoms: Positive: Back Pain, Constipation, Nausea. Negative: Fever, Vomiting Allergies/Adverse Reactions: Allergies Allergy/AdvReac Type Severity Reaction Status Date / Time amoxicillin Allergy Rash Verified 06/09/19 12:49 ciprofloxacin [From Cipro] Allergy Rash Verified 06/09/19 12:49 clavulanic acid Allergy Rash Verified 06/09/19 12:49 [From Augmentin] latex Allergy Hives Verified 06/09/19 12:49 Penicillins Allergy Rash Verified 06/09/19 12:49 phenazopyridine Allergy Rash Verified 06/09/19 12:49 [From Pyridium] Sulfa (Sulfonamide Allergy Rash Verified 06/09/19 12:49 Antibiotics) Home Medications: Home Medications Famotidine [Pepcid AC] 10 mg PO DAILY PRN 06/09/19 [History Confirmed 06/09/19] Oxycodone HCl/Acetaminophen [Endocet 5-325 Tablet] 1 each PO TID PRN 06/09/19 [ History Confirmed 06/09/19] 114/Iron A-G/Folate 1 [Prenate Elite Tablet] 1 each PO DAILY 06/09/19 [ History Confirmed 06/09/19] Sucralfate TAB* [Carafate*] 1 gm PO BID 06/09/19 [History Confirmed 06/09/19] PMH/Surg Hx/FS Hx/Imm Hx Previously Healthy: Yes Endocrine/Hematology History: Denies: Hx Diabetes, Hx Thyroid Disease Cardiovascular History: Denies: Hx Hypertension, Hx Pacemaker/ICD Respiratory History: Denies: Hx Asthma, Hx Chronic Obstructive Pulmonary Disease (COPD) GI History: Reports: Hx Gall Bladder Disease - gallstones, Hx Hiatal Hernia Denies: Hx Ulcer History: Reports: Hx Kidney Infection - hx kidney stones Sensory History: Denies: Hx Hearing Aid Psychiatric History: Reports: Hx Anxiety Denies: Hx Panic Disorder - Surgical History Surgery Procedure, Year, and Place: TUBES IN EARS 1986. TONSILLECTOMY 1990 - Immunization History Immunizations Up to Date: Yes Infectious Disease History: No Infectious Disease History: Denies: Hx Hepatitis, Hx Human Immunodeficiency Virus (HIV), Traveled Outside the [place] in Last 30 Days - Family History Known Family History: Positive: Renal Disease - polycystic kidney disease - Social History Alcohol Use: None Hx Substance Use: No Substance Use Type: Reports: None Hx Tobacco Use: No Smoking Status (MU): Former Smoker Review of Systems Negative: Fever, Chills Positive: Chest Pain Positive: Abdominal Pain, Nausea. Negative: Vomiting Positive: Myalgia All Other Systems Reviewed And Are Negative: Yes Physical Exam - Summary Physical Exam Summary: Constitutional: Well-developed, Well-nourished, Alert. (-) Distressed Skin: Warm, Dry HENT: Normocephalic; Atraumatic Eyes: Conjunctiva normal Neck: Musculoskeletal ROM normal neck. (-) JVD, (-) Stridor, (-) Tracheal deviation Cardio: Rhythm regular, rate normal, Heart sounds normal; Intact distal pulses; Radial pulses are 2+ and symmetric. (-) Murmur Pulmonary/Chest wall: Effort normal. (-) Respiratory distress, (-) Wheezes, (-) Rales Abd: Soft, epigastric tenderness, Negative [place] sign, (-) Distension, (-) Guarding, (-) Rebound Musculoskeletal: (-) Edema Lymph: (-) Cervical adenopathy Neuro: Alert, Oriented x3 Psych: Mood and affect Normal Triage Information Reviewed: Yes Vital Signs On Initial Exam: Initial Vitals Temp Pulse Resp BP Pulse Ox 98.2 F 66 20 165/81 100 06/09/19 12:25 06/09/19 12:25 06/09/19 12:25 06/09/19 12:25 06/09/19 12:25 Vital Signs Reviewed: Yes Procedures - Sedation Patient Received Moderate/Deep Sedation with Procedure: No Diagnostics - Vital Signs Vital Signs Temp Pulse Resp BP Pulse Ox 06/09/19 12:43 63 97 06/09/19 12:42 58 175/83 100 06/09/19 12:25 98.2 F 66 20 165/81 100 - Laboratory Lab Results: Lab Results 06/09/19 Range/Units 12:38 WBC 8.8 (3.5-10.8) 10^3/uL RBC 4.50 (3.70-4.87) 10^6 /uL Hgb 12.6 (12.0-16.0) g/dL Hct 39 (35-47) % MCV 86 (80-97) fL MCH 28 (27-31) pg MCHC 33 (31-36) g/dL RDW 16 H (10-15) % Plt Count 481 H D (150-450) 10^3/uL MPV 8.3 (7.4-10.4) fL Neut % (Auto) 68.6 % Lymph % (Auto) 23.2 % [place] % (Auto) 5.5 % Eos % (Auto) 1.8 % Baso % (Auto) 0.9 % Absolute Neuts (auto) 6.0 (1.5-7.7) 10^3/ul Absolute Lymphs (auto) 2.0 (1.0-4.8) 10^3/ul Absolute Monos (auto) 0.5 (0-0.8) 10^3/ul Absolute Eos (auto) 0.2 (0-0.6) 10^3/ul Absolute Basos (auto) 0.1 (0-0.2) 10^3/ul Absolute Nucleated RBC 0.0 10^3/ul Nucleated RBC % 0.1 Result Diagrams: 06/09/19 12:38 06/09/19 12:38 Lab Statement: Any lab studies that have been ordered have been reviewed, and results considered in the medical decision making process. - Ultrasound Gallbladder US Ultrasound Interpretation Completed By: Radiologist Summary of Ultrasound Findings: CHOLELITHIASIS WITH POSITIVE SONOGRAPHIC KISER SIGN. THE SONOGRAPHIC FEATURES ARE INDETERMINATE FOR ACUTE CHOLECYSTITIS. ED physician has reviewed this report. - EKG 1221 Cardiac Rate: Bradycardia - 53bpm EKG Rhythm: Sinus Bradycardia ST Segment: Normal Ectopy: None Summary of EKG Findings: EKG at 1221 shows sinus bradycardia at 53bpm with no STEMI. ED physician has reviewed and interpreted this report. Abdominal Pain Fem Course/Dx - Course Course Of Treatment: Patient is here with right upper quadrant pain with a known history of gallstones. Patient had lower performed here which showed worsening LFTs compared to prior labs. Patient has an ultrasound shows positive sonographic Kiser sign with gallstones. Surgery was consultated and they recommend admission and possible MRCP. - Diagnoses Provider Diagnoses: Symptomatic cholelithiasis, Elevated LFTs Discharge ED - Sign-Out/Discharge Documenting (check all that apply): Patient Departure - Discharge Plan Condition: Stable Disposition: ADMITTED TO [facility] - Billing Disposition and Condition Condition: STABLE Disposition: Admitted to [facility] - Attestation Statements Document Initiated by Scribe: Yes Documenting Scribe: Aleisha Cerna Provider For Whom Scribe is Documenting (Include Credential): Jerald Noriega MD. Scribe Attestation: Aleisha Starr, gurued for Jerald Noriega MD. on 06/09/19 at 1650. Scribe Documentation Reviewed: Yes Provider Attestation: The documentation as recorded by the scribeAleisha accurately reflects the service I personally performed and the decisions made by Jerald vizcarra MD. Status of Scribe Document: Viewed Consult Consult: [id number] - I spoke with Dr. Bang who will be coming to see the pt. [id number] - Dr. Bang [place] [facility] [place]
[2019-06-09 13:11] LABS: Albumin 3.9 g/dL (3.2-5.2); Albumin/Globulin Ratio 1.3 (1-3); BUN/Creatinine Ratio 15.8 (8-20); Calcium 9.2 mg/dL (8.6-10.3); EGFR African American 106.1 (>60); EGFR Non-African American 87.6 (>60); Potassium 3.6 mmol/L (3.5-5.0); Total Bilirubin 1.3 mg/dL (0.2-1.0); Total Protein 6.9 g/dL (6.4-8.9); Troponin I 0.03 ng/mL (<0.04)
[2019-06-09] MEDS ORDERED: Morphine 4 MG/ML VIAL (1 ml) 4 MG/ML VIAL IV ONE (13:15)
[2019-06-09] MEDS ORDERED: NS 0.9% 1000 ML** 1,000 ML IV ONE (13:15)
[2019-06-09 15:11] LABS: Urine Appearance Clear; Urine Bilirubin Negative (Negative); Urine Blood Negative (Negative); Urine Color Yellow; Urine Glucose Negative (Negative); Urine Ketones Negative (Negative); Urine Nitrite Negative (Negative); Urine Protein Negative (Negative); Urine Specific Gravity 1.006 (1.010-1.030); Urine Urobilinogen Negative (Negative)
--- NOTE | 2019-06-09 16:27 | HP ---
History of Present Illness - History of Present Illness Reason for Visit: Abdominal pain History of Present Illness: Mrs Reis is a 33 yo woman who is 11 days post and otherwise healthy. She presents with epigastric abdominal pain which has been unrelenting for the past 24 hours. She was seen in the ER at [place] twice before coming to [place]. She has experienced multiple episodes of similar abdominal pain since December for which she has gone to the ED. She was seen by Dr Queen for cholelithiasis and planned to follow up with him in July. She has been able to eat and drink normally and has been following a low fat diet. She has some mild nausea but no vomiting. She denies fevers or chills. In the ED here, WBC is normal but LFTs and total bilirubin are mildly elevated. Ultrasound showed no gallbladder wall thickening and CBD 8mm. She denies any past medical or surgical history. She delivered a healthy baby boy by spontaneous vaginal delivery. - Past Family History Family History: Other - Father with prostate cancer. - Past Social History Smoke: Quit - 9 months ago at start of Alcohol: Rare Drugs: None Lives: With Family Review of Systems - Review of Systems Constitutional: Negative: Fever, Chills, Sweats, Weakness, Malaise, Other Eyes: Negative: Pain, Vision Change, Conjunctivae Inflammation, Eyelid Inflammation, Redness, Other ENT: Negative: Ear Pain, Ear Discharge, Nose Pain, Nose Discharge, Nose Congestion, Mouth Pain, Mouth Swelling, Throat Pain, Throat Swelling, Other Respiratory: Negative: Cough, Shortness of Breath, Hemoptysis, SOB with Excertion Cardiovascular: Negative: Chest Pain, Palpitations, Light Headedness Gastrointestinal: Positive: Nausea, Abdominal Pain. Negative: Vomiting, Diarrhea, Constipation Genitourinary: Negative: Dysuria, Frequency Musculoskeletal: Negative: Neck Pain, Shoulder Pain, Arm Pain, Back Pain, Hand Pain, Leg Pain, Foot Pain, Other Skin: Negative: Rash, Lesions, Eriberto, Bruising, Other Neurological: Negative: Weakness, Numbness, Incoordination, Change in Speech, Confusion, Seizures, Other - Medications/Allergies Allergies/Adverse Reactions: Allergies Allergy/AdvReac Type Severity Reaction Status Date / Time amoxicillin Allergy Rash Verified 06/09/19 12:49 ciprofloxacin [From Cipro] Allergy Rash Verified 06/09/19 12:49 clavulanic acid Allergy Rash Verified 06/09/19 12:49 [From Augmentin] latex Allergy Hives Verified 06/09/19 12:49 Penicillins Allergy Rash Verified 06/09/19 12:49 phenazopyridine Allergy Rash Verified 06/09/19 12:49 [From Pyridium] Sulfa (Sulfonamide Allergy Rash Verified 06/09/19 12:49 Antibiotics) Medications: Home Medications Medication Instructions Recorded Confirmed Type Calcium Carbonate [Tums] 500 mg PO Q4HR PRN 05/25/19 06/09/19 History Famotidine [Pepcid AC] 10 mg PO DAILY PRN 06/09/19 06/09/19 History Oxycodone HCl/Acetaminophen 1 each PO TID PRN 06/09/19 06/09/19 History [Endocet 5-325 Tablet] 114/Iron A-G/Folate 1 1 each PO DAILY 06/09/19 06/09/19 History [Prenate Elite Tablet] Sucralfate TAB* [Carafate*] 1 gm PO BID 06/09/19 06/09/19 History Exam - Exam Vital Signs: Vital Signs (72 hours) 06/09/19 06/09/19 06/09/19 12:25 12:42 12:43 Temperature 98.2 F Pulse Rate 66 58 63 Respiratory 20 Rate Blood Pressure 165/81 175/83 (mmHg) O2 Sat by Pulse 100 100 97 Oximetry 06/09/19 06/09/19 06/09/19 13:00 13:12 13:27 Temperature Pulse Rate 60 66 Respiratory 16 Rate Blood Pressure 168/88 (mmHg) O2 Sat by Pulse 97 100 Oximetry 06/09/19 06/09/19 06/09/19 14:00 15:00 15:53 Temperature Pulse Rate 67 57 50 Respiratory Rate Blood Pressure 153/79 (mmHg) O2 Sat by Pulse 97 99 97 Oximetry General: Alert, Oriented x3, Cooperative, No acute distress HEENT: Atraumatic, EOMI Lungs: Clear to auscultation Cardiovascular: Regular rate Abdomen: Soft, Other - Tenderness to palpation in epigastrium and RUQ Extremities: No clubbing, No cyanosis, No edema Skin: No rashes, No significant lesion Neurological: Normal speech, Normal tone Psych/Mental Status: Mental status NL, Mood NL Assessment/Plan - Assessment/Plan Assessment: Symptomatic cholelithiasis. Plan: Admit to the surgery service. I will order an MRCP to rule out biliary obstruction given the elevated LFTs and mildly elevated total bilirubin. I will also check LFTs in the morning. If the LFTs trend down by tomorrow and the MRCP is unremarkable, I will plan for lap cholecystectomy tomorrow depending on the OR schedule. She can have clear liquids tonight and then NPO after midnight. Morphine, Tylenol, and Zofran are ordered for symptom management. Lab Results - Lab Results Lab Results: 06/09/19 06/09/19 06/09/19 12:38 12:38 12:38 WBC 8.8 RBC 4.50 Hgb 12.6 Hct 39 MCV 86 MCH 28 MCHC 33 RDW 16 H Plt Count 481 H D MPV 8.3 Neut % (Auto) 68.6 Lymph % (Auto) 23.2 [place] % (Auto) 5.5 Eos % (Auto) 1.8 Baso % (Auto) 0.9 Absolute Neuts (auto) 6.0 Absolute Lymphs (auto) 2.0 Absolute Monos (auto) 0.5 Absolute Eos (auto) 0.2 Absolute Basos (auto) 0.1 Absolute Nucleated RBC 0.0 Nucleated RBC % 0.1 INR (Anticoag Therapy) 1.03 Sodium 143 Potassium 3.6 Chloride 109 Carbon Dioxide 26 Anion Gap 8 BUN 12 Creatinine 0.76 Est GFR ( Amer) 106.1 Est GFR (Non-Af Amer) 87.6 BUN/Creatinine Ratio 15.8 Glucose 94 Calcium 9.2 Total Bilirubin 1.30 H AST 184 H ALT 180 H Alkaline Phosphatase 451 H Troponin I 0.03 Total Protein 6.9 Albumin 3.9 Globulin 3.0 Albumin/Globulin Ratio 1.3 Lipase 19 Urine Color Urine Appearance Urine pH Ur Specific [place] Urine Protein Urine Ketones Urine Blood Urine Nitrate Urine Bilirubin Urine Urobilinogen Ur Leukocyte Esterase Urine Glucose 06/09/19 14:20 WBC RBC Hgb Hct MCV MCH MCHC RDW Plt Count MPV Neut % (Auto) Lymph % (Auto) [place] % (Auto) Eos % (Auto) Baso % (Auto) Absolute Neuts (auto) Absolute Lymphs (auto) Absolute Monos (auto) Absolute Eos (auto) Absolute Basos (auto) Absolute Nucleated RBC Nucleated RBC % INR (Anticoag Therapy) Sodium Potassium Chloride Carbon Dioxide Anion Gap BUN Creatinine Est GFR ( Amer) Est GFR (Non-Af Amer) BUN/Creatinine Ratio Glucose Calcium Total Bilirubin AST ALT Alkaline Phosphatase Troponin I Total Protein Albumin Globulin Albumin/Globulin Ratio Lipase Urine Color Yellow Urine Appearance Clear Urine pH 6.0 Ur Specific [place] 1.006 L Urine Protein Negative Urine Ketones Negative Urine Blood Negative Urine Nitrate Negative Urine Bilirubin Negative Urine Urobilinogen Negative Ur Leukocyte Esterase Negative Urine Glucose Negative
[2019-06-09] MEDS: Ondansetron INJ* 2 MG/ML VIAL IV PRN (16:28)
[2019-06-09] MEDS: Morphine INJ* 2 MG/ML 1 ML SYRINGE (TWO MG - NEW SYRINGE VERSION) IV PRN ×2 (20:16→22:41)
[2019-06-10] MEDS: Lactated Ringers 1000 ML Bag* 1,000 ML IV SCH ×2 (00:37→09:01)
[2019-06-10] MEDS: Morphine INJ* 2 MG/ML 1 ML SYRINGE (TWO MG - NEW SYRINGE VERSION) IV PRN ×8 (00:39→23:22)
[2019-06-10] MEDS: Ondansetron INJ* 2 MG/ML VIAL IV PRN ×3 (04:37→20:37)
[2019-06-10 06:52] LABS: Albumin 3.3 g/dL (3.2-5.2); Albumin/Globulin Ratio 1.3 (1-3); BUN/Creatinine Ratio 10.3 (8-20); Calcium 8.6 mg/dL (8.6-10.3); EGFR African American 102.9 (>60); EGFR Non-African American 85.1 (>60); Globulin 2.5 g/dL (2-4); Potassium 3.6 mmol/L (3.5-5.0); Total Bilirubin 0.5 mg/dL (0.2-1.0); Total Protein 5.8 g/dL (6.4-8.9)
--- NOTE | 2019-06-10 08:28 | SURGPN ---
Subjective - Introduction -: [f ADM pt sex out], current age [f ADM pt cur age] years Admitted on: [f ADM pt adm dt] - Medications -: Active Medications Generic Name Dose Route Start Last Admin Trade Name Major PRN Reason Stop Dose Admin Acetaminophen 650 mg 06/09/19 16:16 Tylenol Tab* PO Q6H PRN PAIN - MILD Lactated Ringer's 1,000 mls @ 75 mls/hr 06/10/19 00:01 06/10/19 00:37 Lactated Ringers 1000 Ml Bag* IV 75 mls/hr PER RATE NICOLE Administration Morphine Sulfate 2 mg 06/09/19 16:16 06/10/19 06:59 Morphine Inj (Syringe))* IV 2 mg Q2H PRN Administration PAIN - SEVERE Ondansetron HCl 4 mg 06/09/19 16:15 06/10/19 04:37 Zofran Inj* IV 4 mg Q6H PRN Administration NAUSEA - Comments Comments: Johanny reports pain is tolerable. Morphine has helped. She has been ambulating without difficulty. Denies chest pain, shortness of breath, or nausea. Tolerated liquids last night. No fevers or chills. Physical Exam: Temp Pulse Resp BP Pulse Ox 98.2 F 70 14 142/77 96 06/10/19 07:52 06/10/19 07:52 06/10/19 07:52 06/10/19 07:52 06/10/19 07:52 No acute distress. Breathing comfortably on room air. Abdomen soft, nondistended. Mild tenderness to palpation in epigastrium and RUQ. No rebound or guarding. Extremities warm and well-perfused. Alert and oriented x3. Labs: Total bilirubin down to 0.5. ALT 152, AST 102, Alk phos 365, which are all trending down. MRCP: Cholelithiasis only, CBD 6mm. A&P 33F with symptomatic cholelithiasis. -NPO. LR @ 75 ml/h -Cefazolin before OR. -Lap michael this afternoon. I discussed benefits and risks, including but not limited to bleeding, infection, bile duct injury, or bowel injury. Objective - Intake and Output -: Intake & Output 06/08/19 06/09/19 06/10/19 06/11/19 06:59 06:59 06:59 06:59 Intake Total 1200 Output Total 700 400 Balance 500 -400 Weight 140 lb Intake: IV Fluids 1000 Oral 200 Output: Urine 700 400 Other: Estimated Void Medium Breast Milk Amount 3 # Voids 1 ADLs: Meal Record Start: 06/09/19 16: 41 Freq: Status: Active Protocol: Created 06/09/19 16:41 System (Rec: 06/09/19 16:41 System [id number]) Intake and Output Start: 06/09/19 12: 27 Freq: Status: Active Protocol: Created 06/09/19 12:27 System (Rec: 06/09/19 12:27 System [id number]) Document 06/09/19 20:50 [id number] (Rec: 06/10/19 06:03 [id number] [id number]) Intake and Output Start: 06/09/19 16: 41 Freq: DAILY@0600,1400,2200 Status: Active Protocol: Created 06/09/19 16:41 System (Rec: 06/09/19 16:41 System [id number]) Document 06/09/19 22:36 [id number] (Rec: 06/09/19 22:37 [id number] [id number]) Document 06/10/19 01:28 [id number] (Rec: 06/10/19 01:29 [id number] [id number]) Document 06/10/19 02:41 [id number] (Rec: 06/10/19 02:42 [id number] SSU-C01) Document 06/10/19 06:22 [id number] (Rec: 06/10/19 06:23 [id number] SSU-M17) Document 06/10/19 06:49 [id number] (Rec: 06/10/19 06:50 [id number] SSU-M15) Document 06/10/19 07:52 [id number] (Rec: 06/10/19 07:53 [id number] [id number])
--- NOTE | 2019-06-10 08:31 | PN ---
Progress Note - Progress Note Date of Service: 06/10/19 Note: Johanny reports pain is tolerable. Morphine has helped. She has been ambulating without difficulty. Denies chest pain, shortness of breath, or nausea. Tolerated liquids last night. No fevers or chills. Physical Exam: Temp Pulse Resp BP Pulse Ox 98.2 F 70 14 142/77 96 06/10/19 07:52 06/10/19 07:52 06/10/19 07:52 06/10/19 07:52 06/10/19 07:52 No acute distress. Breathing comfortably on room air. Abdomen soft, nondistended. Mild tenderness to palpation in epigastrium and RUQ. No rebound or guarding. Extremities warm and well-perfused. Alert and oriented x3. Labs: Total bilirubin down to 0.5. ALT 152, AST 102, Alk phos 365, which are all trending down. MRCP: Cholelithiasis only, CBD 6mm. A&P 33F with symptomatic cholelithiasis. -NPO. LR @ 75 ml/h -Cefazolin before OR. -Lap michael this afternoon. I discussed benefits and risks, including but not limited to bleeding, infection, bile duct injury, or bowel injury.
[2019-06-10] MEDS ORDERED: Clindamycin 900 MG/D5W BAG(*) 900 MG/50 ML BAG IVPB ONE (13:12)
[2019-06-10] MEDS ORDERED: Rocuronium* 10 MG/ML VIAL ONE (13:55)
[2019-06-10] MEDS ORDERED: Midazolam* 1 MG/ML 2 ML VIAL (2 MG) ONE (13:57)
[2019-06-10] MEDS ORDERED: fentaNYL* 50 MCG/ML 2 ML VIAL (100 MCG VIAL) ONE ×3 (13:57→17:05)
[2019-06-10] MEDS ORDERED: KETAMINE HCL* 50 MG/ML 10 ML VIAL ONE (13:57)
[2019-06-10] MEDS ORDERED: Bupivacaine 0.5%* 50 ML MDV VIAL ONE (14:07)
[2019-06-10] MEDS ORDERED: Dexamethasone IV* 4 MG/ML 1 ML (4 MG) ONE (14:28)
[2019-06-10] MEDS ORDERED: Ondansetron INJ* 2 MG/ML VIAL ONE (14:28)
[2019-06-10] MEDS ORDERED: Propofol* 10 MG/ML 20 ML BTL ONE (14:28)
[2019-06-10] MEDS ORDERED: Lidocaine 2% PF * 5 ML VIAL ONE (14:28)
[2019-06-10] MEDS ORDERED: Ketorolac INJ* 30 MG/ML 1 ML VIAL ONE (14:28)
[2019-06-10] MEDS ORDERED: Glycopyrrolate IV* 0.2 MG/ML 1 ML VIAL ONE ×2 (14:49→15:28)
[2019-06-10] MEDS ORDERED: Naloxone* 0.4 MG/ML 1 ML VIAL IV PRN (15:09)
[2019-06-10] MEDS ORDERED: diPHENhydraMINE IV* 50 MG/ML 1 ml VIAL (BENADRYL) IV PRN (15:09)
--- NOTE | 2019-06-10 16:26 | BRIEFOPN ---
Brief Operative/Procedure Note - Operation Details Pre-Op Diagnosis: Symptomatic cholelithiasis Post-Op Diagnosis: Same Procedures: Lap cholecystectomy Surgeon(s)/Proceduralists: Debi Bang. Lawrence Conner Anesthesia: General Estimated Blood Loss: Minimal Findings: Inflamed gallbladder with sludge. Specimen(s)/Culture(s) Description: Gallbladder Complications: None
[2019-06-10] MEDS: fentaNYL* 50 MCG/ML 2 ML VIAL (100 MCG VIAL) IV PRN ×5 (16:34→16:54)
[2019-06-10] MEDS ORDERED: Metoclopramide IV* 5 MG/ML 2 ML VIAL ONE (16:49)
[2019-06-10] MEDS: oxyCODONE TAB* 5 MG TAB PO PRN ×2 (18:11→22:52)
[2019-06-11] MEDS: Morphine INJ* 2 MG/ML 1 ML SYRINGE (TWO MG - NEW SYRINGE VERSION) IV PRN ×3 (02:17→12:41)
[2019-06-11] MEDS: Acetaminophen TAB* 325 MG PO PRN ×2 (07:28→22:26)
[2019-06-11] MEDS: oxyCODONE TAB* 5 MG TAB PO PRN ×3 (07:28→20:04)
[2019-06-11] MEDS ORDERED: oxyCODONE TAB* 5 MG TAB PO ONE (08:39)
--- NOTE | 2019-06-11 09:04 | PN ---
Progress Note - Progress Note Date of Service: 06/11/19 Note: Difficulty with pain control overnight, requiring morphine about every 2 hours. Pain is in RUQ and epigastrium. A little nausea but no vomiting. Tolerating clears and hungry this morning. Denies chest pain or shortness of breath. Has been ambulating. No fevers or chills. Hypertension overnight. Temp Pulse Resp BP Pulse Ox 98.5 F 51 18 165/75 96 06/11/19 07:38 06/11/19 08:41 06/11/19 08:57 06/11/19 08:41 06/11/19 07:38 No acute distress. Breathing comfortably on room air. Abdomen soft, nondistended. Tenderness to palpation in RUQ and epigastrium. Incisions clean, dry, intact. No redness. Alert and oriented x3. A&P 33F s/p lap michael for symptomatic cholelithiasis POD 1. Will work on pain control with oral meds today and tentatively plan for discharge home this afternoon. Patient's blood pressure has been elevated overnight which is likely due to pain. She had been on HCTZ prior to , but was normotensive during and had stopped taking HCTZ. She will plan to see her primary care physician to discuss blood pressure management. -Try oxycodone 10 mg q4h prn in addition to Tylenol. -Advance diet as tolerated. -Encourage ambulation. -Possible discharge this afternoon.
--- NOTE | 2019-06-11 10:37 | OP ---
OPERATIVE REPORT: DATE OF OPERATION: 06/10/19 DATE OF : 85 SURGEON: Debi Bang MD GENERAL NEUROLOGIST: Lawrence Conner MD ANESTHESIA: General. PRE-OP DIAGNOSIS: Symptomatic cholelithiasis. POST-OP DIAGNOSIS: Symptomatic cholelithiasis. OPERATIVE PROCEDURE: Laparoscopic cholecystectomy. ESTIMATED BLOOD LOSS: Minimal. INDICATIONS: oJhanny Reis is a 33-year-old woman who is 12 days . She had been experiencing episodes of epigastric abdominal pain since December and had planned to follow up with Dr Queen for cholelithiasis in 1 to 2 months . However, she continued to have episodes of abdominal pain which brought her into the ED frequently. She was seen on 06/09/19 in the ED due to unrelenting abdominal pain. Her white count was normal and she denied fevers. Her LFTs and total bilirubin were mildly elevated, however, MRCP did not show choledocholithiasis and labs the next day showed the LFTs were downtrending. Due to these multiple episodes of abdominal pain, I discussed cholecystectomy with the patient. I discussed benefits and risks including, but not limited to bleeding, infection, bowel injury, bile duct injury. The patient agreed to proceed with surgery. FINDINGS: Inflamed gallbladder with sludge. DESCRIPTION OF PROCEDURE: The patient was brought back to the OR and placed in the supine position on the OR table. SCDs were placed. She received clindamycin in the preoperative area. General anesthesia was induced. The abdomen was prepped and draped in the usual sterile fashion. A time-out confirming the patient's identity, patient's date of , and procedure was completed. A curvilinear infraumbilical incision was made. The incision was taken down with electrocautery to the fascia. The fascia was incised vertically with a scalpel. The peritoneum was opened using Metzenbaum scissors. A 12 mm trocar was placed into the abdomen. Pneumoperitoneum to 15 mmHg was achieved. Next, an epigastric 5 mm trocar was placed under direct visualization. A second 5 mm trocar was placed in the lateral right upper quadrant, and a third 5 mm trocar was placed in the right upper quadrant at the mid clavicular line. The trocars were placed under direct visualization. The gallbladder was elevated cephalad. The gallbladder appeared mildly inflamed and was distended with bile and sludge. The peritoneum overlying the gallbladder was taken down using electrocautery and blunt dissection. The cystic duct was identified. The cystic artery was also identified, and the peritoneum overlying the artery was dissected away using blunt dissection and electrocautery. The artery was clipped with 2 clips proximal, 1 clip distal, and then divided sharply. Next, the cystic duct was skeletonized using blunt dissection and electrocautery. I could see there was only 1 duct leading from the gallbladder down towards the common bile duct. The cystic duct was clipped with 2 clips proximal and 1 clip distal. The laparoscopic scissors was used to divide the cystic duct. The gallbladder was then taken off the liver bed using electrocautery. Once the gallbladder was removed from the liver bed, it was placed in a specimen bag. While elevating the gallbladder, there was a small tear in the gallbladder wall with bile spilling into the abdomen. A suction combat control manager was used to suction out the bile in the abdomen. A total of 2 L of saline was used to irrigate the abdomen. The gallbladder was removed and sent to Pathology for permanent section. The trocars were removed under direct visualization. The infraumbilical incision was closed with 0 Vicryl to reapproximate the fascia. The skin was closed with running 4-0 Vicryl. The other trocar sites were closed with interrupted 4-0 Monocryl sutures. 0.5% Marcaine was injected subcutaneously at all 4 trocar sites. The incisions were covered with surgical glue. The patient was extubated. She was brought to the PACU in stable condition. All needle and sponge counts were correct. [id number]/[facility] #: [id number] MTDMaile
[2019-06-11 12:10] LABS: ABS Eosinophils 0.1 10^3/ul (0-0.6); ABS Lymphocytes 2.9 10^3/ul (1.0-4.8); ABS Neutrophils 9.7 10^3/ul (1.5-7.7); Eosinophil % 0.7 %; Hematocrit 35 % (35-47); Hemoglobin 11.8 g/dL (12.0-16.0); Lymphocyte % 21.2 %; Mean Corpuscular HGB Conc 34 g/dL (31-36); Mean Corpuscular Hemoglobin 28 pg (27-31); Mean Corpuscular Volume 85 fL (80-97); Mean Platelet Volume 8.3 fL (7.4-10.4); Nucleated Red Blood Cells % 0.1; Platelet Count 479 10^3/uL (150-450); Red Blood Count 4.18 10^6 /uL (3.70-4.87); Red Cell Distribution Width 15 % (10-15); White Blood Count 13.8 10^3/uL (3.5-10.8)
[2019-06-11 12:21] LABS: Albumin 3.6 g/dL (3.2-5.2); Albumin/Globulin Ratio 1.4 (1-3); BUN/Creatinine Ratio 11.7 (8-20); Calcium 8.9 mg/dL (8.6-10.3); EGFR African American 104.5 (>60); EGFR Non-African American 86.3 (>60); Globulin 2.6 g/dL (2-4); Potassium 3.4 mmol/L (3.5-5.0); Total Bilirubin 3.2 mg/dL (0.2-1.0); Total Protein 6.2 g/dL (6.4-8.9)
[2019-06-11] MEDS: Ketorolac INJ* 30 MG/ML 1 ML VIAL IV PUSH PRN ×2 (13:22→19:07)
[2019-06-11] MEDS ORDERED: Potassium Chlor TAB* 20 MEQ TAB.ER PO ONE (13:45)
[2019-06-12] MEDS: oxyCODONE TAB* 5 MG TAB PO PRN ×2 (00:14→15:29)
[2019-06-12] MEDS: Ketorolac INJ* 30 MG/ML 1 ML VIAL IV PUSH PRN ×2 (02:30→09:25)
[2019-06-12] MEDS: Ondansetron INJ* 2 MG/ML VIAL IV PRN (02:30)
[2019-06-12] MEDS ORDERED: diPHENhydraMINE PO* 25 MG PO PRN ×2 (02:58→15:23)
[2019-06-12] MEDS ORDERED: diPHENhydraMINE PO* 25 MG ONE (02:59)
[2019-06-12] MEDS: Morphine INJ* 2 MG/ML 1 ML SYRINGE (TWO MG - NEW SYRINGE VERSION) IV PRN ×7 (03:31→19:33)
[2019-06-12 05:44] LABS: ABS Basophils 0.1 10^3/ul (0-0.2); ABS Eosinophils 0.2 10^3/ul (0-0.6); ABS Lymphocytes 2.5 10^3/ul (1.0-4.8); ABS Monocytes 0.7 10^3/ul (0-0.8); ABS Neutrophils 4.6 10^3/ul (1.5-7.7); Hematocrit 36 % (35-47); Hemoglobin 11.6 g/dL (12.0-16.0); Lymphocyte % 30.9 %; Mean Corpuscular HGB Conc 33 g/dL (31-36); Mean Corpuscular Hemoglobin 28 pg (27-31); Mean Corpuscular Volume 86 fL (80-97); Mean Platelet Volume 8.4 fL (7.4-10.4); Nucleated Red Blood Cells % 0.1; Platelet Count 431 10^3/uL (150-450); Red Blood Count 4.12 10^6 /uL (3.70-4.87); Red Cell Distribution Width 16 % (10-15); White Blood Count 8.1 10^3/uL (3.5-10.8)
[2019-06-12 06:02] LABS: Albumin 3.4 g/dL (3.2-5.2); Albumin/Globulin Ratio 1.2 (1-3); Calcium 8.8 mg/dL (8.6-10.3); EGFR African American 111.1 (>60); EGFR Non-African American 91.8 (>60); Globulin 2.8 g/dL (2-4); Total Bilirubin 3.9 mg/dL (0.2-1.0); Total Protein 6.2 g/dL (6.4-8.9)
--- NOTE | 2019-06-12 09:20 | PN ---
Progress Note - Progress Note Date of Service: 06/11/19 Note: Abdominal pain is somewhat improved but continues to require morphine. She did have an epsiode of itching last night which resolved after benadryl. Unclear which medication would have brought on the reaction. No fevers or chills. She has been walking. Tolerating low fat diet. LFTs were checked yesterday and liver enzymes were elevated and total bili 3.2. WBC 13.8. Temp Pulse Resp BP Pulse Ox 98.6 F 54 14 161/79 93 06/12/19 07:33 06/12/19 07:33 06/12/19 07:33 06/12/19 07:33 06/12/19 07:33 No acute distress Breathing comfortably on room air Abdomen soft, nondistended. Tenderness to palpation in epigastrium and RUQ. Incisions clean, dry, intact. Extremities warm, no edema Alert and oriented x3 Laboratory Tests 06/12/19 06/12/19 05:19 05:19 WBC 8.1 Total Bilirubin 3.90 H AST 234 H ALT 308 H Alkaline Phosphatase 523 H A&P: 33F s/p lap michael POD 2. Now with hyperbilirubinemia, possibly due to bile spillage during procedure although bilirubin continues to climb. -HIDA scan today to r/o leak or obstruction from stone -NPO until scan completed -Continue to work on pain control: tylenol, ibuprofen, oxycodone. She will try to hold off on morphine -Discharge plan pending HIDA.
[2019-06-12] MEDS ORDERED: Ibuprofen TAB* 600 MG PO PRN (09:22)
[2019-06-12] MEDS: Acetaminophen TAB* 325 MG PO SCH ×2 (10:50→17:10)
[2019-06-12] MEDS ORDERED: NS 0.9% 1000 ML** 1,000 ML IV SCH (16:45)
[2019-06-12] MEDS ORDERED: Cefepime 1 GM in Dextrose(*) 1 GM/50 ML BAG IV SCH (17:00)
[2019-06-12] MEDS ORDERED: metroNIDAZOLE IV 500 MG/100ML* 500 MG/100 ML BAG IVPB SCH (17:00)
--- NOTE | 2019-06-12 17:55 | DS ---
Date of admission: 06/09/19 Date of surgery: 06/10/19 Date of discharge: 06/12/19 Reason for admission: Symptomatic cholelithiasis Procedure: Laparoscopic cholecystectomy HPI: Johanny Reis is a 33 year old woman who is 14 days who presented to the ED on 06/09/19 with unrelenting RUQ and epigastric abdominal pain. She has a known history of symptomatic cholelithiasis since December and has had multiple episodes of similar pain. She was seen in the surgery clinic by Dr Queen with the plan for follow up in July after she has delivered her baby. She was admitted for pain control and plan for surgery. Hospital Course: On admission, WBC was normal. LFTs and total bilirubin were mildly elevated but trended down by the next day. She underwent laparoscopic cholecystectomy on 06/10/19 which was uneventful. On POD 1, LFTs were elevated with total bilirubin 3.2. WBC was 13. She had difficulty with pain control, but was tolerating low fat diet and ambulating. Morphine was effective for pain control. She initally tolerated oxycodone, but on POD 2 she complained of pruritus after oxycodone. Benadryl was given for pruritus. On POD 2, LFTs continued to trend up and total bilirubin was up to 3.9. WBC normalized. She underwent HIDA scan on 06/12/19 which showed uptake in the liver but no excretion into the CBD. There was no evidence of biliary leak. She then underwent RUQ ultrasound which showed intra- and extrahepatic biliary dilatation. There were no stones seen. At this point, I discussed with the patient, her , and her mother that she would likely need ERCP for presumed biliary obstruction, and ERCP is not a procedure that could be performed at [facility] this weekend. We discussed risk of cholangitis and further liver injury if ERCP was not performed in a timely fashion. The patient agreed to transfer with her preference being [facility] in [place]. She received Flagyl 500 mg IV once prior to transfer. She refused cefepime because of penicillin allergy (reaction is rash). I discussed with patient that risk of cross reaction between penicillin and cephalosporin is unlikely, but she still refused cefepime. Her condition at the time of transfer is guarded. Disposition: Transfer to [facility] ([facility]) Active Medications: Acetaminophen (Tylenol Tab*) 650 mg PO Q6H NICOLE Last Admin: 06/12/19 17:10 Dose: Not Given Diphenhydramine HCl (Benadryl Po*) 25 mg PO Q6H PRN PRN Reason: PRURITIS Last Admin: 06/12/19 17:20 Dose: 25 mg Metronidazole/Sodium Chloride (Flagyl 500 Mg Ivpb*) 500 mg in 100 mls @ 100 mls /hr IVPB Q6H [facility] Last Admin: 06/12/19 17:30 Dose: 100 mls/hr Sodium Chloride (Ns 0.9% 1000 Ml) 1,000 mls @ 75 mls/hr IV PER RATE [facility] Last Admin: 06/12/19 17:22 Dose: 75 mls/hr Ibuprofen (Motrin Tab*) 600 mg PO Q6H PRN PRN Reason: PAIN - MILD Morphine Sulfate (Morphine Inj (Syringe))*) 2 mg IV Q2H PRN PRN Reason: PAIN - SEVERE Last Admin: 06/12/19 17:23 Dose: 2 mg Ondansetron HCl (Zofran Inj*) 4 mg IV Q6H PRN PRN Reason: NAUSEA Last Admin: 06/12/19 02:30 Dose: 4 mg Oxycodone HCl (Roxycodone Tab*) 10 mg PO Q4H PRN PRN Reason: PAIN- MODERATE Last Admin: 06/12/19 15:29 Dose: 10 mg Laboratory Tests 06/09/19 06/09/19 06/09/19 12:38 12:38 12:38 WBC 8.8 RBC 4.50 Hgb 12.6 Hct 39 MCV 86 MCH 28 MCHC 33 RDW 16 H Plt Count 481 H D MPV 8.3 Neut % (Auto) 68.6 Lymph % (Auto) 23.2 [place] % (Auto) 5.5 Eos % (Auto) 1.8 Baso % (Auto) 0.9 Absolute Neuts (auto) 6.0 Absolute Lymphs (auto) 2.0 Absolute Monos (auto) 0.5 Absolute Eos (auto) 0.2 Absolute Basos (auto) 0.1 Absolute Nucleated RBC 0.0 Nucleated RBC % 0.1 INR (Anticoag Therapy) 1.03 Sodium 143 Potassium 3.6 Chloride 109 Carbon Dioxide 26 Anion Gap 8 BUN 12 Creatinine 0.76 Est GFR ( Amer) 106.1 Est GFR (Non-Af Amer) 87.6 BUN/Creatinine Ratio 15.8 Glucose 94 Calcium 9.2 Total Bilirubin 1.30 H AST 184 H ALT 180 H Alkaline Phosphatase 451 H Troponin I 0.03 Total Protein 6.9 Albumin 3.9 Globulin 3.0 Albumin/Globulin Ratio 1.3 Lipase 19 Urine Color Urine Appearance Urine pH Ur Specific [place] Urine Protein Urine Ketones Urine Blood Urine Nitrate Urine Bilirubin Urine Urobilinogen Ur Leukocyte Esterase Urine Glucose 06/09/19 06/10/19 06/11/19 14:20 05:57 11:54 WBC 13.8 H RBC 4.18 Hgb 11.8 L Hct 35 MCV 85 MCH 28 MCHC 34 RDW 15 Plt Count 479 H MPV 8.3 Neut % (Auto) 70.4 Lymph % (Auto) 21.2 [place] % (Auto) 7.4 Eos % (Auto) 0.7 Baso % (Auto) 0.3 Absolute Neuts (auto) 9.7 H Absolute Lymphs (auto) 2.9 Absolute Monos (auto) 1.0 H Absolute Eos (auto) 0.1 Absolute Basos (auto) 0.0 Absolute Nucleated RBC 0.0 Nucleated RBC % 0.1 INR (Anticoag Therapy) Sodium 143 Potassium 3.6 Chloride 109 Carbon Dioxide 29 Anion Gap 5 BUN 8 Creatinine 0.78 Est GFR ( Amer) 102.9 Est GFR (Non-Af Amer) 85.1 BUN/Creatinine Ratio 10.3 Glucose 70 Calcium 8.6 Total Bilirubin 0.50 AST 102 H ALT 152 H Alkaline Phosphatase 365 H Troponin I Total Protein 5.8 L Albumin 3.3 Globulin 2.5 Albumin/Globulin Ratio 1.3 Lipase Urine Color Yellow Urine Appearance Clear Urine pH 6.0 Ur Specific [place] 1.006 L Urine Protein Negative Urine Ketones Negative Urine Blood Negative Urine Nitrate Negative Urine Bilirubin Negative Urine Urobilinogen Negative Ur Leukocyte Esterase Negative Urine Glucose Negative 06/11/19 06/12/19 06/12/19 11:54 05:19 05:19 WBC 8.1 RBC 4.12 Hgb 11.6 L Hct 36 MCV 86 MCH 28 MCHC 33 RDW 16 H Plt Count 431 MPV 8.4 Neut % (Auto) 56.5 Lymph % (Auto) 30.9 [place] % (Auto) 8.7 Eos % (Auto) 3.0 Baso % (Auto) 0.9 Absolute Neuts (auto) 4.6 Absolute Lymphs (auto) 2.5 Absolute Monos (auto) 0.7 Absolute Eos (auto) 0.2 Absolute Basos (auto) 0.1 Absolute Nucleated RBC 0.0 Nucleated RBC % 0.1 INR (Anticoag Therapy) Sodium 138 139 Potassium 3.4 L 4.0 Chloride 102 105 Carbon Dioxide 27 27 Anion Gap 9 7 BUN 9 8 Creatinine 0.77 0.73 Est GFR ( Amer) 104.5 111.1 Est GFR (Non-Af Amer) 86.3 91.8 BUN/Creatinine Ratio 11.7 11.0 Glucose 104 H 84 Calcium 8.9 8.8 Total Bilirubin 3.20 H D 3.90 H AST 199 H 234 H ALT 235 H 308 H Alkaline Phosphatase 543 H 523 H Troponin I Total Protein 6.2 L 6.2 L Albumin 3.6 3.4 Globulin 2.6 2.8 Albumin/Globulin Ratio 1.4 1.2 Lipase 10 L Urine Color Urine Appearance Urine pH Ur Specific [place] Urine Protein Urine Ketones Urine Blood Urine Nitrate Urine Bilirubin Urine Urobilinogen Ur Leukocyte Esterase Urine Glucose
[2019-06-12 18:14] LABS: Hematocrit 38 % (35-47); Hemoglobin 12.5 g/dL (12.0-16.0); Mean Corpuscular HGB Conc 33 g/dL (31-36); Mean Corpuscular Hemoglobin 28 pg (27-31); Mean Corpuscular Volume 86 fL (80-97); Mean Platelet Volume 8.1 fL (7.4-10.4); Platelet Count 459 10^3/uL (150-450); Red Blood Count 4.47 10^6 /uL (3.70-4.87); Red Cell Distribution Width 16 % (10-15); White Blood Count 8.9 10^3/uL (3.5-10.8)
[2019-06-12 18:53] LABS: Albumin 3.7 g/dL (3.2-5.2); Albumin/Globulin Ratio 1.2 (1-3); BUN/Creatinine Ratio 9.2 (8-20); Calcium 9.2 mg/dL (8.6-10.3); EGFR African American 106.1 (>60); EGFR Non-African American 87.6 (>60); Globulin 3.1 g/dL (2-4); Indirect Bilirubin 1.2 mg/dL (0.3-1.0); Total Protein 6.8 g/dL (6.4-8.9)
[2019-06-12 19:34] VITALS: BP 148/82
== END 2019-06-12 20:01 | disposition short-term general hospital (02) | DRG 951 ==
LOC: ED 12:17 → UNDOADMOB 15:32 → SSU 15:32 → OBSVTOIN 16:41
PROVIDERS: ADMIT Surgery Surgical Critical Care; ATTEND Surgery Surgical Critical Care
PROC: 0FT44ZZ Resection of Gallbladder, Percutaneous Endoscopic Approach (ICD-10-PCS; principal; 2019-06-10 13:00)
DX: O99.63 Diseases of the digestive system complicating the puerperium (principal); K83.1 Obstruction of bile duct; K44.9 Diaphragmatic hernia without obstruction or gangrene; K80.20 Calculus of gallbladder without cholecystitis without obstruction; O26.63 Liver and biliary tract disorders in the puerperium; O16.5 Unspecified maternal hypertension, complicating the puerperium; O90.89 Other complications of the puerperium, not elsewhere classified; L29.8 Other pruritus; T40.2X5A Adverse effect of other opioids, initial encounter; Y92.239 Unspecified place in hospital as the place of occurrence of the external cause; Z87.442 Personal history of urinary calculi; Z88.0 Allergy status to penicillin; Z88.2 Allergy status to sulfonamides; Z88.1 Allergy status to other antibiotic agents; Z88.8 Allergy status to other drugs, medicaments and biological substances; Z91.040 Latex allergy status; Z87.891 Personal history of nicotine dependence; Z84.1 Family history of disorders of kidney and ureter
CPT/HCPCS: 36415; 74181; 76376; 76705; 78226; 80048; 80053; 80076; 81003; 83690; 84484; 85025; 85027; 85610; 88304; 93005; 96361; 96374; 99284; A9270-GY; A9537; J0692; J1100; J1885; J2250; J2270; J2405; J2704; J2765; J3010; J3490

== ENCOUNTER 2021-07-10 18:09 | Inpatient (IN) ==
[2021-07-10 19:46] LABS: ABS Eosinophils 0.2 10^3/ul (0-0.6); ABS Lymphocytes 2.5 10^3/ul (1.0-4.8); ABS Monocytes 1.1 10^3/ul (0-0.8); ABS Neutrophils 7.6 10^3/ul (1.5-7.7); Eosinophil % 1.3 %; Hematocrit 29 % (35-47); Hemoglobin 9.7 g/dL (12.0-16.0); Lymphocyte % 22.3 %; Mean Corpuscular HGB Conc 34 g/dL (31-36); Mean Corpuscular Hemoglobin 28 pg (27-31); Mean Corpuscular Volume 82 fL (80-97); Mean Platelet Volume 9.3 fL (7.4-10.4); Platelet Count 270 10^3/uL (150-450); Red Cell Distribution Width 15 % (10-15); White Blood Count 11.4 10^3/uL (3.5-10.8)
[2021-07-10 20:01] LABS: Urine Appearance Clear; Urine Bilirubin Negative (Negative); Urine Blood 1+ (Negative); Urine Color Yellow; Urine Glucose Negative (Negative); Urine Ketones Negative (Negative); Urine Nitrite Negative (Negative); Urine Protein Negative (Negative); Urine Specific Gravity 1.013 (1.002-1.030); Urine Urobilinogen Negative (Negative)
[2021-07-10 20:04] LABS: Albumin/Globulin Ratio 1.1 (1-3); Calcium 8.7 mg/dL (8.6-10.3); Globulin 2.8 g/dL (2-4); Potassium 3.4 mmol/L (3.5-5.0); Total Bilirubin 0.2 mg/dL (0.2-1.0); Total Protein 5.8 g/dL (6.4-8.9); eGFR CKD-EPI 123.6 (>60)
[2021-07-10 20:07] LABS: Urine Bacteria 1+ (Absent); Urine Red Blood Cell Trace(0-2/hpf) (Absent); Urine Squamous Epithelial Cell Present (Absent); Urine White Blood Cell Trace(0-5/hpf) (Absent)
[2021-07-10] MEDS: Betamethasone 6 mg/ml 5 ml VIAL IM SCH (20:54)
[2021-07-10 21:21] LABS: Urine Benzodiazepine Screen None Detected (None Detect); Urine Opiates Screen None Detected (None Detect)
[2021-07-11] MEDS ORDERED: NS 0.9% 100 ml BAG 100 ML ONE (09:53)
[2021-07-11] MEDS ORDERED: Iron Sucrose 200 MG in NS 0.9% 100 ml BAG 100 ML IVPB ONE (10:30)
[2021-07-11] MEDS: Betamethasone 6 mg/ml 5 ml VIAL IM SCH (20:58)
[2021-07-11 21:32] LABS: Urine Collection Time OB 24 hr
[2021-07-11 21:36] LABS: Urine Total Volume OB 1500 mL
[2021-07-11 21:44] LABS: Ur TP Concentration Obstetric 21 mg/dL
[2021-07-12 10:53] VITALS: BP 137/90
== END 2021-07-12 11:30 | disposition home or self-care (01) | DRG 566 ==
LOC: MCHOBOUT 18:09 → MCHOB 20:36
PROVIDERS: ADMIT Obstetrics & Gynecology; ATTEND Obstetrics & Gynecology

== ENCOUNTER 2021-07-24 10:05 | Inpatient (IN) ==
[2021-07-24 11:42] LABS: ABS Basophils 0.1 10^3/ul (0-0.2); ABS Eosinophils 0.1 10^3/ul (0-0.6); ABS Lymphocytes 2.5 10^3/ul (1.0-4.8); ABS Monocytes 0.9 10^3/ul (0-0.8); ABS Neutrophils 8.1 10^3/ul (1.5-7.7); Eosinophil % 1.1 %; Hematocrit 36 % (35-47); Hemoglobin 11.8 g/dL (12.0-16.0); Lymphocyte % 21.1 %; Mean Corpuscular HGB Conc 33 g/dL (31-36); Mean Corpuscular Hemoglobin 28 pg (27-31); Mean Corpuscular Volume 86 fL (80-97); Mean Platelet Volume 9.2 fL (7.4-10.4); Platelet Count 302 10^3/uL (150-450); Red Cell Distribution Width 18 % (10-15); White Blood Count 11.7 10^3/uL (3.5-10.8)
[2021-07-24 12:02] LABS: Albumin 3.5 g/dL (3.2-5.2); Albumin/Globulin Ratio 1.2 (1-3); Calcium 9.5 mg/dL (8.6-10.3); Globulin 2.9 g/dL (2-4); Potassium 3.8 mmol/L (3.5-5.0); Total Bilirubin 0.3 mg/dL (0.2-1.0); Total Protein 6.4 g/dL (6.4-8.9); eGFR CKD-EPI 122.5 (>60)
[2021-07-24] MEDS ORDERED: Buffered Lidocaine 1% SYRIN 1 ml INTRADERM ONE (12:40)
[2021-07-24] MEDS ORDERED: Dinoprostone 10 MG VAG.SUPP VAGINAL ONE (12:40)
[2021-07-24] MEDS ORDERED: Lactated Ringers 1000 ml BAG 1,000 ML IV ONE (12:40)
[2021-07-24] MEDS ORDERED: Lactated Ringers 1000 ml BAG 1,000 ML IV SCH (13:00)
[2021-07-24 14:00] LABS: Urine Benzodiazepine Screen None Detected (None Detect); Urine Cannabinoids Screen None Detected (None Detect); Urine Opiates Screen None Detected (None Detect)
[2021-07-24 15:27] LABS: Urine Appearance Cloudy; Urine Bilirubin Negative (Negative); Urine Blood 1+ (Negative); Urine Color Yellow; Urine Glucose Negative (Negative); Urine Ketones Negative (Negative); Urine Nitrite Negative (Negative); Urine Protein 1+(30 mg/dL) (Negative); Urine Urobilinogen Negative (Negative)
[2021-07-24 15:31] LABS: Urine Bacteria 1+ (Absent); Urine Red Blood Cell 3+(>10/hpf) (Absent); Urine Squamous Epithelial Cell Present (Absent); Urine White Blood Cell 2+(11-20/hpf) (Absent)
[2021-07-25] MEDS ORDERED: Dinoprostone 10 MG VAG.SUPP VAGINAL ONE (20:14)
[2021-07-25] MEDS ORDERED: Labetalol IV 5 MG/ML 20 ml VIAL IV PUSH ONE (23:08)
[2021-07-25] MEDS ORDERED: Labetalol IV 5 MG/ML 20 ml VIAL ONE (23:09)
[2021-07-25 23:23] LABS: ABS Basophils 0.1 10^3/ul (0-0.2); ABS Eosinophils 0.1 10^3/ul (0-0.6); ABS Lymphocytes 3.4 10^3/ul (1.0-4.8); ABS Monocytes 1.3 10^3/ul (0-0.8); Hematocrit 37 % (35-47); Hemoglobin 12.3 g/dL (12.0-16.0); Lymphocyte % 24.2 %; Mean Corpuscular HGB Conc 34 g/dL (31-36); Mean Corpuscular Hemoglobin 29 pg (27-31); Mean Corpuscular Volume 85 fL (80-97); Mean Platelet Volume 9.2 fL (7.4-10.4); Nucleated Red Blood Cells % 0.2; Platelet Count 326 10^3/uL (150-450); Red Blood Count 4.32 10^6 /uL (3.70-4.87); Red Cell Distribution Width 19 % (10-15)
[2021-07-25] MEDS ORDERED: OBEPIDURAL 250 ML EPIDURAL ONE (23:26)
[2021-07-25 23:33] LABS: Albumin 3.5 g/dL (3.2-5.2); CO2 Carbon Dioxide 16 mmol/L (22-32); Calcium 9.1 mg/dL (8.6-10.3); Chloride 107 mmol/L (101-111); Sodium 134 mmol/L (135-145)
[2021-07-25 23:39] LABS: ALT 11 U/L (7-52); Albumin/Globulin Ratio 1.1 (1-3); Alkaline Phosphatase 168 U/L (35-149); Blood Urea Nitrogen 11 mg/dL (6-24); Globulin 3.2 g/dL (2-4); Glucose 122 mg/dL (70-100); Total Protein 6.7 g/dL (6.4-8.9)
[2021-07-25 23:45] LABS: Anion Gap 11 mmol/L (2-11)
[2021-07-26] MEDS ORDERED: Sodium Citrate/Citric Acid LIQ 15 ML UDC PO PRN (00:21)
[2021-07-26] MEDS ORDERED: Phenylephrine 40 mcg/mL 10mL (400mcg) SYRINGE IV PUSH PRN ×2 (00:21)
[2021-07-26] MEDS ORDERED: Lactated Ringers 1000 ml BAG 1,000 ML IV ONE (00:21)
[2021-07-26] MEDS ORDERED: EPHEDrine (Pressors) 50 MG/ML VIAL IV PUSH PRN ×2 (00:21)
[2021-07-26] MEDS ORDERED: Lactated Ringers 1000 ml BAG 1,000 ML IV SCH ×2 (01:00→14:00)
[2021-07-26] MEDS ORDERED: OBEPIDURAL 250 ML EPIDURAL SCH (01:00)
[2021-07-26 01:20] LABS: Urine Appearance Clear; Urine Bilirubin Negative (Negative); Urine Blood 2+ (Negative); Urine Color Straw; Urine Glucose Negative (Negative); Urine Ketones Negative (Negative); Urine Nitrite Negative (Negative); Urine Protein Negative (Negative); Urine Specific Gravity 1.011 (1.002-1.030); Urine Urobilinogen Negative (Negative)
[2021-07-26 01:32] LABS: Urine Bacteria 1+ (Absent); Urine Red Blood Cell 3+(>10/hpf) (Absent); Urine Squamous Epithelial Cell Present (Absent); Urine White Blood Cell Trace(0-5/hpf) (Absent)
[2021-07-26] MEDS ORDERED: Oxytocin in LR 20 UNITS/1,000 ML BAG IVPB SCH ×2 (09:00→14:00)
[2021-07-26] MEDS ORDERED: Ondansetron 4 mg VIAL 2 MG/ML 2 ml VIAL IV PRN (09:34)
[2021-07-26] MEDS ORDERED: Glycerin ADULT 2.4 gm SUPP PR PRN (13:12)
[2021-07-26] MEDS ORDERED: RHO D Immune Globulin (HUMAN) 300 MCG = 1,500 I.U. INJ IM PRN (13:12)
[2021-07-26] MEDS ORDERED: Labetalol IV 5 MG/ML 20 ml VIAL IV PUSH ONE (14:04)
[2021-07-27 07:08] LABS: ABS Basophils 0.1 10^3/ul (0-0.2); ABS Eosinophils 0.2 10^3/ul (0-0.6); ABS Lymphocytes 2.4 10^3/ul (1.0-4.8); ABS Neutrophils 6.7 10^3/ul (1.5-7.7); Eosinophil % 1.5 %; Hematocrit 30 % (35-47); Hemoglobin 10.2 g/dL (12.0-16.0); Lymphocyte % 23.2 %; Mean Corpuscular HGB Conc 34 g/dL (31-36); Mean Corpuscular Hemoglobin 29 pg (27-31); Mean Corpuscular Volume 86 fL (80-97); Mean Platelet Volume 8.6 fL (7.4-10.4); Platelet Count 237 10^3/uL (150-450); Red Blood Count 3.53 10^6 /uL (3.70-4.87); Red Cell Distribution Width 18 % (10-15); White Blood Count 10.3 10^3/uL (3.5-10.8)
[2021-07-27] MEDS: Witch Hazel PAD JAR TOPICAL PRN (08:15)
[2021-07-27] MEDS: Dibucaine 1% OINT 28.35 GM TUBE PR PRN (08:15)
[2021-07-28] MEDS: Witch Hazel PAD JAR TOPICAL PRN (08:22)
[2021-07-28] MEDS: Dibucaine 1% OINT 28.35 GM TUBE PR PRN (08:22)
[2021-07-28 08:33] VITALS: BP 143/89
== END 2021-07-28 12:40 | disposition home or self-care (01) | DRG 560 ==
LOC: MCHOBOUT 10:05 → MCHOB 11:14
PROVIDERS: ADMIT Obstetrics & Gynecology; ATTEND Obstetrics & Gynecology